=== PATIENT | female | born 1980 | race Caucasian/White ===

== ENCOUNTER 2019-11-16 22:42 | Emergency (ER) | payer OTHER, SELFPAY ==
[2019-11-16] VITALS (9 sets, daily range): BP systolic 127–140; BP diastolic 75–85; PULSE 70–83; RESP 12–18; TEMP 36.7; O2SAT 99–100
--- NOTE | ~2019-11-16 | CT_ITS ---
EXAMINATION: CT abdomen pelvis wo con DATE: 11/17/2019 01:03 INDICATION: Right flank and lower quadrant pain TECHNIQUE: Computed tomography (CT) of the abdomen and pelvis was performed without intravenous contr ast. The dose-length product (DLP) was 621.14 mGy-cm. Automated exposure control and iterative recons truction technique were employed. COMPARISON: 04/08/2018 FINDINGS: Minimal dependent atelectasis is present in the lung bases. The heart size is normal. The g allbladder is surgically absent. The liver, spleen, pancreas, and adrenal glands are normal. There is a 3 mm nonobstructing stone of the left kidney lower pole. There are punctate nonobstructing right k idney stones. There is no hydronephrosis or hydroureter. No pathologically enlarged abdominal or pelv ic lymph nodes are identified. There is no free intraperitoneal gas or evidence of bowel obstruction. The appendix is normal. There is a fat-containing umbilical hernia. IMPRESSION: 1. No CT correlate for the patient's symptoms. 2. 3 mm nonobstructing left kidney stone. Reviewed, dictated and finalized at location A. CULTURAL SCIENCES PROFESSOR
--- NOTE | ~2019-11-16 | XR_ITS ---
EXAMINATION: XR chest 2V 11/16/2019 23:24 INDICATION: Cough with chest tightness PROCEDURE: 2 view chest COMPARISON: Comparison to multiple prior studies sequentially, with oldest reviewed study dated 03/12. FINDINGS: The lungs are clear. The cardiomediastinal silhouette is within normal limits. There are no pleural effusions. There is no pneumothorax suspected. There are cholecystectomy clips. IMPRESSION: 1: NO ACUTE CARDIOPULMONARY DISEASE. Reviewed, dictated and finalized at location A. FIC MONITOR SPECIALIST
--- NOTE | 2019-11-16 22:52 | ED.ARRPALP ---
HPI - Arrhythmia/Palpitations General Chief Complaint: Arrhythmia/Palpitations Stated Complaint: dizzy, chest discomfort. Time Seen by Provider: 11/16/19 22:51 Source: patient and RN notes reviewed Mode of arrival: other Limitations: no limitations History of Present Illness HPI narrative: Pt is a 39 y/o female who presents to the ED with c/o hear skipping beats that began earlier this afternoon while watching TV with her daughter. Pt has a family hx of long QT syndrome. Pt has a hx of bronchitis. Pt notes that she dx with bronchitis with borderline pneumonia yesterday and and was prescribed a steroid and Cefprozil 250 mg. Her PCP did not do an x-ray but the pt states her PCP recommends she get an x-ray if her sx persisted. She notes her PCP said her lungs sounded very coarse when examined yesterday. Pt notes that whenever she had bronchitis previously, she was given a different abx. Pt believes her sx are caused by the abx. She notes that she did not take the steroid until today. Pt also reports BLE tingling, BUE tingling, chest pressure pain, weakness, RLQ ABD pain, dizziness, near syncopal episode, and nausea, but denies a fever and vomiting. Pt's global safety officer is Dr. Haynes. complaint: skipped beats Onset (ago): hour(s) Duration: constant Context: occurred during rest Arrhythmia history: other (long QT wave syndrome) Associated symptoms: chest pain (pressure), near-syncope, nausea and other (reports BLE tingling, BUE tingling, weakness, RLQ ABD pain, dizziness) Related Data Home Medications Medication Instructions Recorded Confirmed bupropion HCl 150 mg 24 hr tablet, 150 mg PO QAM 09/28/19 09/28/19 extended release levothyroxine 200 mcg tablet 200 mcg PO DAILY 09/28/19 09/28/19 levothyroxine 25 mcg tablet 25 mcg PO DAILY 09/28/19 09/28/19 Allergies Allergy/AdvReac Type Severity Reaction Status Date / Time metoclopramide Allergy Severe DYSRHYTHMIA Verified 11/15/19 11:04 S ondansetron Allergy Severe DYSRHYTHMIA Verified 11/15/19 11:04 S PROLONGED QT DRUGS Allergy Severe DYSRHYTHMIA Uncoded 11/15/19 11:04 S Review of Systems Review of Systems: All systems reviewed & are unremarkable except as noted in HPI and below Constitutional: Constitutional: Denies fever(s) Cardiovascular: Cardiovascular: Reports chest pain (pressure) and Reports other (heartbeat skipping beats) Gastrointestinal: Gastrointestinal: Reports abdominal pain (RLQ), Reports nausea and Denies vomiting Neurologic: Reports dizziness, Reports syncope (near), Reports tingling (in her BLE and BUE) and Reports weakness PMFSH Past Medical History Medical History (Updated 11/17/19 @ 01:10 by Ed Regalado MD) Anxiety Bronchitis Chronic rhinitis Endometriosis Headache Hyperthyroidism Hypothyroidism Iron deficiency anemia Melanoma left wrist Meningitis Mitral valve prolapse Moderate episode of recurrent major depressive disorder Ovarian cyst Ulcer Uterine fibroid Surgical History Surgical History (Updated 11/16/19 @ 23:11 by Mandie Stern) H/O laparoscopy H/O removal of cyst History of right oophorectomy History of surgical removal of skin lesion Hx of section Hx of cholecystectomy Lumbar puncture headache Family History Family History (Updated 11/17/19 @ 00:51 by Mandie Stern) Other Congenital long QT syndrome Diabetes mellitus Family history of coronary artery disease Hypertension Lupus Social History Social History Smoking status: Never smoker Second hand tobacco smoke exposure: No Alcohol intake: current Exam Const: General: healthy appearing, no acute distress and well developed Nutritional Appearance: well nourished Orientation/consciousness: patient oriented x3 (alert) and Other orientation findings (Alert) Limitations: no limitations HENMT: Head: normocephalic and atraumatic Ears: external ears normal General nos
--- NOTE | 2019-11-16 22:55 | ECG_ITS ---
Measurements Intervals [place] Rate: 78 P: 61 AR: 169 QRS: 91 QRSD: 97 T: 32 QT: 384 QTc: 439 Interpretive Statements SINUS RHYTHM VENTRICULAR PREMATURE COMPLEX POSSIBLE LEFT ATRIAL ENLARGEMENT BORDERLINE T WAVE ABNORMALITY- ANTERIOR LEADS BORDERLINE ECG Electronically Signed On 11-17-2019 7:10:11 ELECTRONIC ASSEMBLER GROUP LEADER by Angel Cortés D.O.
[2019-11-16 23:20] LABS: Basophils Percent Auto 0.3 % (0.2-1.2); Hematocrit 37.3 % (37.0-47.0); Hemoglobin 12.1 g/dL (12.0-15.0); Immature Granulocyte Absolute 0.02 K/mm3 (0.00-0.031); Immature Granulocyte Percent A 0.2 % (0-0.5); Lymphocytes Percent Auto 6.7 % (18.3-44.2); Mean Corpuscular HGB Conc 32.4 g/dl (32-36); Mean Corpuscular Hemoglobin 29.4 pg (26-34); Mean Corpuscular Volume 90.5 fl (80-100); Mean Platelet Volume 9.4 fl (7.4-10.4); Monocytes Absolute Auto 0.1 K/mm3 (0.1-0.6); Monocytes Percent Auto 0.9 % (2.6-8.5); Neutrophils Absolute Auto 8.3 K/mm3 (1.3-6.7); Neutrophils Percent Auto 91.9 % (45.5-73.1); Platelet Count Result 221 k/mm3 (150-375); Red Blood Count 4.12 M/mm3 (4.2-5.4); Red Cell Distribution Width 12.6 % (11.5-14.5)
[2019-11-16 23:28] LABS: Alanine Aminotransferase 17 U/L (4-35); Albumin Level 4.8 g/dL (3.5-5.1); Alkaline Phosphatase 78 U/L (38-126); Aspartate Amino Transferase 37 U/L (14-36); Bilirubin,Total 0.3 mg/dL (0.2-1.3); Blood Urea Nitrogen 12 mg/dL (7-17); Calcium 9.5 mg/dL (8.4-10.2); Carbon Dioxide 23 mmol/L (22-30); Chloride 102 mmol/L (98-107); Estimated CRCL calculation 112 ml/min; Estimated Glomerular Filt Rate > 60; Glucose 218 mg/dL (65-105); Magnesium 1.9 mg/dL (1.6-2.3); Sodium 136 mmol/L (137-145)
[2019-11-16 23:40] LABS: Troponin I < 0.012 ng/mL (0.000-0.034)
[2019-11-16 23:51] LABS: Add Urine Microscopic? YES; Appearance Urine Clear (Clear); Bacteria Urine 2+ /hpf; Bilirubin Urine Negative (Negative); Blood Urine 1+ (Negative); Color Urine Straw (Yellow); Glucose Urine UA 3+ mg/dL (Negative); Ketones Urine Negative (Negative); Leukocyte Esterase Ur Negative LEU/UL (Negative); Mucus Urine Rare /lpf; Nitrate Urine Negative (Negative); Protein Urine Negative (Negative); RBC Urine 0-2 /hpf (0-2); Specific Grav Ur 1.009 (1.001-1.035); Squamous Epithelial Cell Urine Few /hpf (Few); Urobilinogen Urine Negative mg/dL (<2.0); WBC Urine 0-3 /hpf
[2019-11-17] VITALS: PULSE 78; RESP 14; O2SAT 100
[2019-11-17 00:01] VITALS: BP 117/75; PULSE 73; RESP 13; O2SAT 100
[2019-11-17 00:20] VITALS: PULSE 72; RESP 13; O2SAT 100
[2019-11-17 00:30] VITALS: PULSE 70; RESP 14; O2SAT 100
--- NOTE | 2019-11-17 00:54 | PC.NURSE ---
Patient taken to CT.
[2019-11-17 01:19] LABS: Free T4 Free Thyroxine 0.54 ng/mL (0.78-2.19)
[2019-11-17 02:13] VITALS: BP 117/73; PULSE 71; RESP 15; O2SAT 99
== END 2019-11-17 02:00 | disposition home or self-care (01) ==
PROVIDERS: Emergency Provider Emergency Medicine; PCP Family Medicine
DX: R00.2 Palpitations (principal); E03.9 Hypothyroidism, unspecified; D50.9 Iron deficiency anemia, unspecified; Z85.820 Personal history of malignant melanoma of skin; I34.1 Nonrheumatic mitral (valve) prolapse; F33.8 Other recurrent depressive disorders; F41.9 Anxiety disorder, unspecified; I49.3 Ventricular premature depolarization; R94.31 Abnormal electrocardiogram [ECG] [EKG]
CPT/HCPCS: 36415; 71046; 74176; 80053; 81001; 83735; 84439; 84443; 84484; 85025; 93005; 99284

== ENCOUNTER 2020-01-05 08:10 | Emergency (ER) | payer OTHER, SELFPAY ==
--- NOTE | ~2020-01-05 | CT_ITS ---
EXAMINATION: CT abdomen pelvis w con EXAM DATE: 01/05/2020 09:38 INDICATION: Abdominal pain, right-sided. Diarrhea. TECHNIQUE: Spiral CT of the abdomen and pelvis was performed following intravenous injection of 100 m L Omnipaque 350. Axial, coronal and sagittal images were reviewed. The dose-length product (DLP) fo r this examination was 611.47 mGy-cm. The exposure was tailored according to patient size (auto mA e xposure control), and iterative reconstruction (ASIR) was used as additional dose reduction technique . Comparison is made to prior examination from 11/17/2019. FINDINGS: The liver, spleen, adrenal glands and pancreas are unremarkable. There are cholecystectomy clips. Portal and splenic veins are patent. Kidneys enhance symmetrically. There is no hydronephr osis. There is a 2 mm left inferior calyceal stone. Left ovarian physiological follicle measuring 2 c m. The uterus is unremarkable. The bladder is unremarkable. There is no retroperitoneal or pelvic lymphadenopathy. Small umbilical fat-containing hernia. The appendix is normal. There is mild mid ileal wall edema, consistent with enteritis. Inflammatory bowel disease less likely. There is expected amount of colonic stool. No free intraperitoneal gas. The heart is normal in size. There are no pericardial or pleural effusions. The lung bases are u nremarkable. There are no osteoblastic or osteolytic lesions identified. IMPRESSION: 1. Mild mid ileal edema, probably enteritis. Inflammatory bowel disease not excludable. 2. Punctate left nephrolithiasis. Reviewed, dictated and finalized at location A. IMPRESSION: 1. Mild mid ileal edema, probably enteritis. Inflammatory bowel disease not ex cludable. 2. Punctate left nephrolithiasis.
[2020-01-05 08:16] VITALS: BP 127/67; PULSE 81; RESP 15; TEMP 36.8; O2SAT 100
--- NOTE | 2020-01-05 08:28 | ED.GENADULT ---
HPI - General Adult General Chief complaint: Abdominal Pain Stated complaint: right side abd pain Time Seen by Provider: 01/05/20 08:17 Source: patient Mode of arrival: ambulatory Limitations: no limitations History of Present Illness HPI narrative: Patient has had right lower quadrant pain since Friday. She states that the pain started on the right upper and her flank and has traveled now to towards her groin, but she does complain of diffuse abdominal pain. She said multiple episodes of diarrhea since Friday, the stool is normal in color. Her appetite is decreased and she has difficulty walking due to the pain. She denies any fever. No history of kidney stones in herself but there is a family history as there is a family history of diverticular disease. Onset (ago): day(s) Location: abdomen (right side) Radiation: flank Quality: stabbing Pain Consistency: constant Relieving factors: none Associated symptoms: fever/chills (no fever) Treatments prior to arrival: NSAID Related Data Home Medications Medication Instructions Recorded Confirmed bupropion HCl 150 mg 24 hr tablet, 150 mg PO QAM 09/28/19 09/28/19 extended release levothyroxine 200 mcg tablet 200 mcg PO DAILY 09/28/19 09/28/19 Allergies Allergy/AdvReac Type Severity Reaction Status Date / Time metoclopramide Allergy Severe DYSRHYTHMIA Verified 01/05/20 08:21 S ondansetron Allergy Severe DYSRHYTHMIA Verified 01/05/20 08:21 S PROLONGED QT DRUGS Allergy Severe DYSRHYTHMIA Uncoded 01/05/20 08:21 S Review of Systems Review of Systems: All systems reviewed & are unremarkable except as noted in HPI and below PMFSH Past Medical History Medical History Anxiety Bronchitis Chronic rhinitis Endometriosis Headache Hyperthyroidism Hypothyroidism Iron deficiency anemia Melanoma left wrist Meningitis Mitral valve prolapse Moderate episode of recurrent major depressive disorder Ovarian cyst Ulcer Uterine fibroid Surgical History Surgical History H/O laparoscopy H/O removal of cyst History of right oophorectomy History of surgical removal of skin lesion Hx of section Hx of cholecystectomy Lumbar puncture headache Family History Family History Other Congenital long QT syndrome Diabetes mellitus Family history of coronary artery disease Hypertension Lupus Social History Social History (Updated 01/05/20 @ 09:03 by Ileana Rizo PA-C) Smoking status: Never smoker Second hand tobacco smoke exposure: No Alcohol intake: current Substance use: never Living arrangements: with family Gender identity (if verbalized by the patient): Female Exam Const: General: no acute distress and alert Orientation/consciousness: patient oriented x3 HENMT: Head: normal to inspection Eyes: Conjunctivae: conjunctivae normal Pupils: Equal, round and reactive pupils present Neck: Neck: no lymphadenopathy Resp: Effort & Inspection: normal respiratory effort Auscultation: clear to auscultation bilaterally Cardio: Rate: regular rate Rhythm: regular rhythm GI: GI Palp: Yes Soft to palpation and Yes Tenderness to palpation present (GI) (through out.) Auscultation: Hyperactive bowel sounds present : General: Yes CVA tenderness on the right Skin: General skin exam: normal color Rashes: no rashes Neuro: General: patient oriented x3 and moves all extremities Extrem: General: normal to inspection Psych: Mental Status: mental status grossly normal Course Course Emergency Course: CT results reviewed with patient and . Will treat as gastroenteritis. Pt is limited for antiemetics due to family history of prolonged Q-T syndrome. Recommend steve as a natural antiemetic, mylanta for gastic pain. If not resolved by the end of the week recommen
[2020-01-05 09:04] LABS: Basophils Absolute Auto 0.1 K/mm3 (0.0-0.1); Eosinophils Absolute Auto 0.1 K/mm3 (0-0.3); Eosinophils Percent Auto 2.9 % (0-4.4); Hematocrit 36.7 % (37.0-47.0); Hemoglobin 11.7 g/dL (12.0-15.0); Immature Granulocyte Absolute 0.02 K/mm3 (0.00-0.031); Immature Granulocyte Percent A 0.4 % (0-0.5); Lymphocytes Absolute Auto 1.18 K/mm3 (0.9-3.2); Mean Corpuscular HGB Conc 31.9 g/dl (32-36); Mean Corpuscular Hemoglobin 28.8 pg (26-34); Mean Corpuscular Volume 90.4 fl (80-100); Mean Platelet Volume 9.4 fl (7.4-10.4); Monocytes Absolute Auto 0.5 K/mm3 (0.1-0.6); Monocytes Percent Auto 10.4 % (2.6-8.5); Neutrophils Percent Auto 61.3 % (45.5-73.1); Platelet Count Result 232 k/mm3 (150-375); Red Blood Count 4.06 M/mm3 (4.2-5.4); Red Cell Distribution Width 13.1 % (11.5-14.5); White Blood Count 4.9 K/mm3 (4.5-10.0)
[2020-01-05 09:06] LABS: Add Urine Microscopic? NO; Appearance Urine Clear (Clear); Bilirubin Urine Negative (Negative); Blood Urine Negative (Negative); Color Urine Straw (Yellow); Glucose Urine UA Negative (Negative); Ketones Urine Negative (Negative); Leukocyte Esterase Ur Negative LEU/UL (Negative); Nitrate Urine Negative (Negative); Protein Urine Negative (Negative); Specific Grav Ur 1.012 (1.001-1.035); Urobilinogen Urine Negative mg/dL (<2.0)
[2020-01-05 09:20] LABS: Alanine Aminotransferase 22 U/L (4-35); Albumin Level 4.3 g/dL (3.5-5.1); Alkaline Phosphatase 69 U/L (38-126); Aspartate Amino Transferase 42 U/L (14-36); Bilirubin,Total 0.6 mg/dL (0.2-1.3); Blood Urea Nitrogen 9 mg/dL (7-17); Calcium 8.8 mg/dL (8.4-10.2); Carbon Dioxide 28 mmol/L (22-30); Chloride 102 mmol/L (98-107); Estimated CRCL calculation 112 ml/min; Estimated Glomerular Filt Rate > 60; Glucose 94 mg/dL (65-105); Lipase 86 U/L (23-300); Potassium 3.4 mmol/L (3.4-5.0); Sodium 138 mmol/L (137-145)
[2020-01-05 09:46] VITALS: BP 144/74; PULSE 85; RESP 14; O2SAT 100
[2020-01-05] MEDS: KETOROLAC 30 MG/ML VIAL (*BKC) IV PUSH (10:04)
[2020-01-05 10:56] VITALS: BP 104/75; PULSE 75; RESP 15; O2SAT 99
== END 2020-01-05 11:00 | disposition home or self-care (01) ==
PROVIDERS: Physician Assistant; Emergency Provider Emergency Medicine; PCP Family Medicine
DX: K52.9 Noninfective gastroenteritis and colitis, unspecified (principal); B34.9 Viral infection, unspecified; F41.9 Anxiety disorder, unspecified
CPT/HCPCS: 36415; 74177; 80053; 81003; 81025; 83690; 85025; 96374; 99284; J1885; Q9967

== ENCOUNTER → 2020-07-04 11:02 | Outpatient (CLI) | payer OTHER, SELFPAY ==
--- NOTE | ~2020-07-04 | XR_ITS ---
XR chest 2V 07/04/2020 11:30 Indication: Pleurodynia Procedure: 2 view chest Comparison: Comparison to multiple prior studies sequentially, with oldest reviewed study dated 07/10. Findings: Heart size normal. Left basilar infiltrates are new. Right lung clear. No pleural effusion or pneumothorax. No edema. No acute osseous abnormality. Impression: 1: Left basilar infiltrates may represent atelectasis or less likely developing pneumonia. Reviewed, dictated and finalized at location B. Impression: 1: Left basilar infiltrates may represent atelectasis or less likely developing pneumonia.
--- NOTE | ~2020-07-04 | XR_ITS ---
EXAMINATION: XR_CERV2-3V_CR DATE: 07/04/2020 11:30 INDICATION: Neck pain. TECHNIQUE: 5 views of cervical spine were obtained. COMPARISON: None. FINDINGS: There is 9 degrees dextrocurvature of cervical spine. Vertebral body heights and interverte bral disc heights are normal. The facet joints are unremarkable. No central canal stenosis or prevert ebral soft tissue swelling. IMPRESSION: 1. Dextrocurvature of cervical spine. Reviewed, dictated and finalized at location A.
== END ==
PROVIDERS: PCP Family Medicine; Visit Provider Physician Assistant
DX: R07.81 Pleurodynia (principal); M54.2 Cervicalgia; R91.8 Other nonspecific abnormal finding of lung field
CPT/HCPCS: 71046; 72040

== ENCOUNTER → 2020-07-27 08:59 | Outpatient (CLI) | payer OTHER, SELFPAY ==
--- NOTE | ~2020-07-27 | XR_ITS ---
EXAMINATION: XR chest 2V EXAM DATE: 07/27/2020 09:10 INDICATION: Acute lower respiratory infection. TECHNIQUE: Frontal and lateral projections of the chest obtained and reviewed. Comparison is made to prior examination from 07/04/2020. FINDINGS: The lungs are clear. There are no pleural effusions. The cardiomediastinal silhouette is within normal limits. There is no pneumothorax suspected. The bones and soft tissues are unremarkab le. IMPRESSION: No acute cardiopulmonary findings. Reviewed, dictated and finalized at location B.
== END ==
PROVIDERS: PCP Family Medicine; Visit Provider Physician Assistant
DX: J22 Unspecified acute lower respiratory infection (principal)
CPT/HCPCS: 71046

== ENCOUNTER → 2020-10-10 08:58 | Outpatient (CLI) | payer OTHER, SELFPAY ==
--- NOTE | ~2020-10-10 | XR_ITS ---
EXAMINATION: XR chest 2V DATE: 10/10/2020 09:16 INDICATION: Shortness of breath, history of COVID 19 TECHNIQUE: PA and lateral views of the chest are obtained. COMPARISON: 07/27/2020 FINDINGS: The lungs are free of acute opacities. There is no pleural effusion or pneumothorax. The ca rdiomediastinal silhouette is normal. The visualized bones and soft tissues are unremarkable. IMPRESSION: 1. No acute cardiopulmonary abnormality. Reviewed, dictated and finalized at location A. LE LOUNGE DRIVER OR OPERATOR
== END ==
PROVIDERS: PCP Family Medicine; Visit Provider Physician Assistant
DX: R06.02 Shortness of breath (principal)
CPT/HCPCS: 71046

== ENCOUNTER 2020-12-20 15:52 | Emergency (ER) | payer OTHER, SELFPAY ==
--- NOTE | ~2020-12-20 | XR_ITS ---
EXAMINATION: XR foot LT min 3V EXAM DATE: 12/20/2020 16:06 INDICATION: Kamlesh dropped onto left foot. Pain left 3-5th toes. Initial encounter. TECHNIQUE: Left foot dorsoplantar, lateral and oblique projections obtained and reviewed. There is n o prior study for comparison. FINDINGS: Left metatarsal bones unremarkable. There are no acute fractures or dislocations identifi ed. There is no subcutaneous gas. The soft tissue is unremarkable. There are no radiopaque foreig n bodies. IMPRESSION: 1. XR foot LT min 3V exam without acute osseous findings. Reviewed, dictated and finalized at location A. CHIEF
--- NOTE | 2020-12-20 15:57 | ED.GENADULT ---
HPI - General Adult General Chief complaint: Extremity Injury, Lower Stated complaint: INJURED L FOOT Time Seen by Provider: 12/20/20 15:57 Source: patient Mode of arrival: ambulatory Limitations: no limitations History of Present Illness HPI narrative: 40-year-old female patient presents to the [facility] with complaints of left foot pain. Patient states that she was at [employer] today with her and that her accidentally dropped some paddy onto her left foot. Patient states that she has been at home elevating it, icing it did take some ibuprofen for the pain. Patient states she mostly has pain to the third fourth and fifth toe on the left foot. Patient states that she is also had some pain across the arch, sole in the midfoot with walking on it. Related Data Home Medications Medication Instructions Recorded Confirmed levothyroxine 200 mcg tablet 200 mcg PO DAILY 10/10/20 Allergies Allergy/AdvReac Type Severity Reaction Status Date / Time metoclopramide Allergy Severe DYSRHYTHMIA Verified 10/10/20 08:36 S ondansetron Allergy Severe DYSRHYTHMIA Verified 10/10/20 08:36 S PROLONGED QT DRUGS Allergy Severe DYSRHYTHMIA Uncoded 01/05/20 08:21 S Review of Systems Review of Systems: Narrative: CONSTITUTIONAL: Denies fever, chills, or sweats. EYES: Denies visual changes, redness, or discharge. ENT: Denies rhinorrhea, congestion, sore throat, or otalgia. CARDIOVASCULAR: Denies chest pain, palpitations, or edema. RESPIRATORY: Denies cough or dyspnea. GASTROINTESTINAL: Denies abdominal pain, nausea, vomiting, or diarrhea. GENITOURINARY: Denies dysuria or hematuria. SKIN: Denies rash or itching. MUSCULOSKELETAL: Denies back pain, joint pain, or myalgia. Positive left foot pain NEUROLOGIC: Denies headache, numbness, or weakness. PSYCHIATRIC: Denies anxiety or depression. [facility] Past Medical History Medical History (Updated 12/20/20 @ 16:12 by JESSICA Mendiola) Anxiety Bronchitis Chronic rhinitis Endometriosis Headache Hyperthyroidism Hypothyroidism Iron deficiency anemia Melanoma left wrist Meningitis Mitral valve prolapse Moderate episode of recurrent major depressive disorder Ovarian cyst Ulcer Uterine fibroid Surgical History Surgical History H/O laparoscopy H/O removal of cyst History of right oophorectomy History of surgical removal of skin lesion Hx of section Hx of cholecystectomy Lumbar puncture headache Family History Family History Other Congenital long QT syndrome Diabetes mellitus Family history of coronary artery disease Hypertension Lupus Social History Social History Smoking status: Never smoker Second hand tobacco smoke exposure: No Alcohol intake: current Substance use: never Gender identity (if verbalized by the patient): Female Comments At the time of my signature I agree with nursing past medical history, surgical, social, and family history. There is no relevant family history pertinent to the presenting complaint. Exam Narrative: Exam Narrative: GENERAL: Well-appearing, well-nourished, and in no acute distress. HEAD: Normocephalic, atraumatic. EYES: PERRLA and EOMI. ENT: Nares clear, no rhinorrhea or epistaxis. Mucous membranes moist. NECK: Supple. No lymphadenopathy CHEST: Clear to auscultation. No respiratory distress. HEART: Regular rate and rhythm. No murmur heard. Normal peripheral pulses. ABDOMEN: Soft, nontender, nondistended, normal active bowel sounds. EXTREMITIES: Patient able to bear weight and ambulate but has increased pain to the left foot. No surface trauma, ecchymosis, erythema, lesions, ulcers or break in skin integrity. The L foot is without obvious asymmetry or deformity when compared to the R foot. No bony step-off, tender to palpati
[2020-12-20 15:58] VITALS: BP 131/74; PULSE 71; RESP 16; TEMP 36.6; O2SAT 100
== END 2020-12-20 16:19 | disposition home or self-care (01) ==
PROVIDERS: Emergency Provider Nurse Practitioner Family; PCP Family Medicine
DX: S93.602A Unspecified sprain of left foot, initial encounter (principal); W20.8XXA Other cause of strike by thrown, projected or falling object, initial encounter; N80.9 Endometriosis, unspecified; E03.9 Hypothyroidism, unspecified; I34.1 Nonrheumatic mitral (valve) prolapse; F41.9 Anxiety disorder, unspecified
CPT/HCPCS: 73630; 99213; G0463

== ENCOUNTER 2021-01-11 11:56 | Outpatient (CLI) | payer OTHER, SELFPAY ==
--- NOTE | 2021-01-11 12:18 | ECG_ITS ---
Measurements Intervals [place] Rate: 72 P: 64 CO: 172 QRS: 72 QRSD: 94 T: 44 QT: 394 QTc: 431 Interpretive Statements SINUS RHYTHM POSSIBLE LEFT ATRIAL ENLARGEMENT BORDERLINE T WAVE ABNORMALITY- ANTERIOR LEADS BORDERLINE ECG Electronically Signed On 01-11-2021 12:35:06 CDT by Angel Cortés D.O.
[2021-01-11 12:42] LABS: D Dimer 0.27 ug/mL (<0.48)
== END 2021-01-11 11:57 | disposition home or self-care (01) ==
PROVIDERS: PCP Family Medicine; Visit Provider Physician Assistant
DX: R06.02 Shortness of breath (principal); R07.9 Chest pain, unspecified; R94.31 Abnormal electrocardiogram [ECG] [EKG]
CPT/HCPCS: 36415; 85380; 93005

== ENCOUNTER 2021-01-16 08:52 | Outpatient (CLI) | payer OTHER, SELFPAY ==
[2021-01-16 09:07] LABS: Hematocrit 39.6 % (37.0-47.0); Hemoglobin 12.9 g/dL (12.0-15.0); Mean Corpuscular HGB Conc 32.6 g/dl (32-36); Mean Corpuscular Hemoglobin 29.7 pg (26-34); Mean Corpuscular Volume 91.2 fl (80-100); Mean Platelet Volume 9.3 fl (7.4-10.4); Platelet Count Result 210 k/mm3 (150-375); Red Blood Count 4.34 M/mm3 (4.2-5.4); Red Cell Distribution Width 12.4 % (11.5-14.5); White Blood Count 6.4 K/mm3 (4.5-10.0)
[2021-01-16 09:20] LABS: Alanine Aminotransferase 28 U/L (4-35); Albumin Level 4.4 g/dL (3.5-5.1); Alkaline Phosphatase 75 U/L (38-126); Anion Gap 4 mmol/L (8-16); Aspartate Amino Transferase 49 U/L (14-36); Bilirubin,Total 0.4 mg/dL (0.2-1.3); Blood Urea Nitrogen 12 mg/dL (7-17); Carbon Dioxide 31 mmol/L (22-30); Chloride 104 mmol/L (98-107); Cholesterol 192 mg/dL (0-200); Estimated Glomerular Filt Rate > 60; Glucose 96 mg/dL (65-105); HDL Direct 56 mg/dL; Magnesium 1.9 mg/dL (1.6-2.3); Potassium 4.3 mmol/L (3.4-5.0); Sodium 139 mmol/L (137-145); Triglycerides 110 mg/dL (<150)
[2021-01-16 09:30] LABS: LDL Cholesterol Direct 99 mg/dL
[2021-01-16 09:37] LABS: Iron 98 ug/dL (37-170)
[2021-01-16 09:46] LABS: Percent Iron Saturation 27 % (20-50)
== END 2021-01-16 08:53 | disposition home or self-care (01) ==
PROVIDERS: PCP Family Medicine; Visit Provider Family Medicine
DX: R07.89 Other chest pain (principal); R00.2 Palpitations; D50.9 Iron deficiency anemia, unspecified; E03.9 Hypothyroidism, unspecified; E78.2 Mixed hyperlipidemia
CPT/HCPCS: 36415; 80053; 80061; 82728; 83540; 83550; 83735; 84443; 85027

== ENCOUNTER → 2021-05-08 06:37 | Outpatient (CLI) | payer OTHER, SELFPAY ==
[2021-05-08 17:52] LABS: SARS-CoV-2 RNA PCR Negative
== END ==
PROVIDERS: PCP Family Medicine; Visit Provider Physician Assistant
DX: R05 Cough (principal); Z20.822 Contact with and (suspected) exposure to COVID-19
CPT/HCPCS: C9803; U0003; U0005

== ENCOUNTER 2021-10-03 13:48 | Outpatient (CLI) | payer OTHER, SELFPAY ==
--- NOTE | ~2021-10-03 | US_ITS ---
US thyroid INDICATION: Thyroid nodule.. Previous radiation therapy to the thyroid gland. TECHNIQUE: Real-time sonographic images of the thyroid gland were obtained. COMPARISON: 03/11/2017 FINDINGS: The right thyroid lobe measures 2.3 x 1 x 0.4 cm. The left thyroid lobe measures 1.6 x 0.9 x 0.6 cm. There is normal echotexture and echogenicity throughout the thyroid gland. No discrete nod ules identified. Normal vascular flow is present. IMPRESSION: 1. Atrophic thyroid gland without discrete mass. Reviewed, dictated and finalized at location A. IGERATING ENGINEER
== END 2021-10-03 13:49 | disposition home or self-care (01) ==
LOC: ANHIMG 13:55
PROVIDERS: PCP Family Medicine; Visit Provider Obstetrics & Gynecology
DX: E04.1 Nontoxic single thyroid nodule (principal)
CPT/HCPCS: 76536

== ENCOUNTER 2022-01-29 12:06 | Outpatient (CLI) | payer OTHER, SELFPAY ==
--- NOTE | 2022-01-29 12:16 | ECG_ITS ---
Measurements Intervals [place] Rate: 53 P: 40 [place]: 161 QRS: 71 QRSD: 98 T: 34 QT: 427 QTc: 402 Interpretive Statements SINUS BRADYCARDIA NONSPECIFIC T-WAVE ABNORMALITY ABNORMAL ECG COMPARED TO ECG 01/11/2021 12:23:16 SINUS BRADYCARDIA NOW PRESENT Electronically Signed On 01-29-2022 18:05:41 CDT by Hoang Bowie M.D.
== END 2022-01-29 12:07 | disposition home or self-care (01) ==
LOC: ANHCARD 12:08
PROVIDERS: PCP Family Medicine; Visit Provider Physician Assistant Medical
DX: E03.9 Hypothyroidism, unspecified (principal); I45.81 Long QT syndrome; R00.1 Bradycardia, unspecified
CPT/HCPCS: 93005

== ENCOUNTER 2022-05-13 10:56 | Emergency (ER) | payer OTHER, SELFPAY ==
--- NOTE | 2022-05-13 11:01 | ED.URI ---
HPI - URI/Sore Throat General Chief Complaint: Upper Respiratory Infection Stated Complaint: Sore Throat,Cough Time Seen by Provider: 05/13/22 11:45 Source: patient and RN notes reviewed Mode of arrival: ambulatory Limitations: no limitations History of Present Illness HPI Narrative: 41-year-old female presents with concern for sore throat that started . Reports the sore throat was intermittent over the weekend however has worsened over the last day. She reports she is now having ear pain. She reports occasional cough and chest congestion, rhinorrhea. She reports she is taken 3 negative COVID tests. 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 Reports she has been taking Tylenol and ibuprofen MD elicited complaint: sore throat Related Data Home Medications Medication Instructions Recorded Confirmed levothyroxine 200 mcg tablet 200 mcg PO DAILY 10/10/20 05/13/22 (Synthroid) metoprolol succinate 25 mg 12.5 mg PO DAILY 01/29/22 05/13/22 tablet,extended release 24 hr Allergies Allergy/AdvReac Type Severity Reaction Status Date / Time metoclopramide Allergy Severe DYSRHYTHMIA Verified 05/13/22 11:26 S ondansetron Allergy Severe DYSRHYTHMIA Verified 05/13/22 11:26 S PROLONGED QT DRUGS Allergy Severe DYSRHYTHMIA Uncoded 05/13/22 11:26 S Review of Systems Review of Systems: CONSTITUTIONAL: Denies malaise, chills, sweats, or fever. EYES: Denies visual changes, redness, or discharge. ENT: Reports rhinorrhea, congestion, otalgia and sore throat. CARDIOVASCULAR: Denies chest pain, palpitations, or edema. RESPIRATORY: Reports cough. Denies dyspnea. GASTROINTESTINAL: Denies abdominal pain, nausea, vomiting, diarrhea SKIN: Denies rash or itching. MUSCULOSKELETAL: Denies myalgia. NEUROLOGIC: Denies headache. All systems reviewed & are unremarkable except as noted in HPI and below PMFSH Past Medical History Medical History (Updated 05/13/22 @ 11:45 by Jenifer Mesa NP) Anxiety Bronchitis Chronic rhinitis Dysphagia Endometriosis Headache Hyperthyroidism Hypothyroidism Iron deficiency anemia Melanoma left wrist Meningitis Mitral valve prolapse Moderate episode of recurrent major depressive disorder Ovarian cyst Ulcer Uterine fibroid Surgical History Surgical History H/O laparoscopy H/O removal of cyst History of right oophorectomy History of surgical removal of skin lesion Hx of section Hx of cholecystectomy Lumbar puncture headache Family History Family History (Reviewed 01/29/22 @ 11:07 by Simran Joy [facility]) Other Congenital long QT syndrome Diabetes mellitus Family history of coronary artery disease Hypertension Lupus Social History Social History (Reviewed 01/29/22 @ 11:07 by Simran Joy [facility]) Smoking status: Never smoker Second hand tobacco smoke exposure: No Alcohol intake: never Substance use: never Gender identity (if verbalized by the patient): Female Comments At time of signature, agree with nursing past medical, surgical, social and family history. There is no relevant family history pertinent to the presenting complaint Exam Narrative: GENERAL: Well-appearing, well-nourished, and in no acute distress. HEAD: Normocephalic EYES: PERRLA, conjunctivae clear ENT: Nares clear, clear discharge. Mucous membranes moist. TM pearly harris with sharp light reflex bilaterally; no tragal tenderness. Oropharynx erythematous without lesions. Tonsils cobblestoned without exudate, no drooling, no hoarseness, no trismus, uvula midline. NECK: Supple. No lymphadenopathy CHEST: Clear to auscultation, breath sounds equal. No wheezing, rhonchi, rales, or stridor. No respiratory distress, speaks in full sentences. HEART: Regular rate and rhythm. No murmur heard. SKIN: Warm, dry, no rash. NEURO: Alert and oriented x3. PSYCH: Nupur
[2022-05-13 11:18] VITALS: BP 115/76; PULSE 75; RESP 18; TEMP 37.1; O2SAT 100
== END 2022-05-13 12:05 | disposition home or self-care (01) ==
PROVIDERS: Emergency Provider Nurse Practitioner; PCP Family Medicine
DX: J06.9 Acute upper respiratory infection, unspecified (principal); N80.9 Endometriosis, unspecified; E03.9 Hypothyroidism, unspecified; E05.90 Thyrotoxicosis, unspecified without thyrotoxic crisis or storm; I34.1 Nonrheumatic mitral (valve) prolapse; Z85.820 Personal history of malignant melanoma of skin; F41.9 Anxiety disorder, unspecified
CPT/HCPCS: 87081; 87880; 99213; G0463

== ENCOUNTER 2022-05-20 10:03 | Emergency (ER) | payer OTHER, SELFPAY ==
--- NOTE | ~2022-05-20 | XR_ITS ---
EXAMINATION: XR chest 2V 05/20/2022 10:44 INDICATION: Cough for 10 days PROCEDURE: 2 view chest COMPARISON: 11/16/2019 FINDINGS: The lungs are clear. The cardiomediastinal silhouette is within normal limits. There are no pleural effusions. There is no pneumothorax suspected. IMPRESSION: 1: NO ACUTE CARDIOPULMONARY DISEASE. Reviewed, dictated and finalized at location [facility].
--- NOTE | 2022-05-20 10:20 | ED.URI ---
HPI - URI/Sore Throat General Chief Complaint: Upper Respiratory Infection Stated Complaint: sorethroat,cough Time Seen by Provider: 05/20/22 10:30 Source: patient Mode of arrival: ambulatory Limitations: no limitations History of Present Illness HPI Narrative: Ms. Cano is a 41-year-old female patient presenting to the clinic today with complaints of a cough, sore throat, and chest tightness. She reports that she has been sick for 10 days. States that she has had 2 strep test and COVID test and they were all negative. She denies any fever or chills currently. Her SPO2 is currently 100% on room air. She states that she is prone to getting bronchitis and pneumonia. MD elicited complaint: sore throat and nasal congestion Related Data Home Medications Medication Instructions Recorded Confirmed levothyroxine 200 mcg tablet 200 mcg PO DAILY 10/10/20 05/20/22 (Synthroid) metoprolol succinate 25 mg 12.5 mg PO DAILY 01/29/22 05/20/22 tablet,extended release 24 hr Allergies Allergy/AdvReac Type Severity Reaction Status Date / Time metoclopramide Allergy Severe DYSRHYTHMIA Verified 05/20/22 10:36 S ondansetron Allergy Severe DYSRHYTHMIA Verified 05/20/22 10:36 S PROLONGED QT DRUGS Allergy Severe DYSRHYTHMIA Uncoded 05/20/22 10:36 S Review of Systems Review of Systems: Pertinent positives per HPI. Patient denies any fever, chills, rash, headache, visual changes, dizziness, shortness of breath, chest pain, palpitations, nausea, vomiting, diarrhea, constipation, abdominal pain, or any urinary issues. [facility] Past Medical History Medical History Anxiety Bronchitis Chronic rhinitis Dysphagia Endometriosis Headache Hyperthyroidism Hypothyroidism Iron deficiency anemia Melanoma left wrist Meningitis Mitral valve prolapse Moderate episode of recurrent major depressive disorder Ovarian cyst Ulcer Uterine fibroid Surgical History Surgical History H/O laparoscopy H/O removal of cyst History of right oophorectomy History of surgical removal of skin lesion Hx of section Hx of cholecystectomy Lumbar puncture headache Family History Family History Other Congenital long QT syndrome Diabetes mellitus Family history of coronary artery disease Hypertension Lupus Social History Social History Smoking status: Never smoker Second hand tobacco smoke exposure: No Alcohol intake: never Substance use: never Gender identity (if verbalized by the patient): Female Comments At the time of my signature, I reviewed and agree with the nursing past medical, surgical, social, and family history. There is no relevant family history pertinent to the patient complaint. Exam Narrative: General: Well-developed, well nourished, in no apparent distress Head: Normocephalic, atraumatic Eyes: Pupils equally round and reactive to light bilaterally, EOM intact, sclera and conjunctive clear, no discharge, lids normal Ears: TMs intact and clear, ear canals clear, no drainage, grossly hearing normal. Nose: Nares patent, no discharge, no inflammation, no sinus tenderness. Mouth: Oral pharynx without lesions or masses, good dentition, MMM. Oropharynx mildly red, postnasal drip Neck: Supple, trachea midline, no enlargement of anterior or posterior cervical nodes, no thyroid masses or goiter palpable. Cardio: Regular rate and rhythm, s1 and s2 normal, no murmur appreciated. Resp: Clear to auscultation bilaterally, no rhonchi, rales, wheezing or rubs Course Course Emergency Course: Portions of this record may have been created with voice recognition software. Level of Care: Express Care Visit Vital Signs Vital signs: Vital Signs Temperature 3
[2022-05-20 10:22] VITALS: BP 115/80; PULSE 76; RESP 18; TEMP 37.1; O2SAT 100
== END 2022-05-20 11:00 | disposition home or self-care (01) ==
PROVIDERS: Emergency Provider Nurse Practitioner Family; PCP Family Medicine
DX: J40 Bronchitis, not specified as acute or chronic (principal); N80.9 Endometriosis, unspecified; E05.90 Thyrotoxicosis, unspecified without thyrotoxic crisis or storm; E03.9 Hypothyroidism, unspecified; I34.1 Nonrheumatic mitral (valve) prolapse; Z85.820 Personal history of malignant melanoma of skin
CPT/HCPCS: 71046; 99213; G0463

== ENCOUNTER 2022-06-04 10:02 | Outpatient (CLI) | payer OTHER, SELFPAY ==
--- NOTE | 2022-06-04 10:07 | ECG_ITS ---
Measurements Intervals [place] Rate: 60 P: 68 [place]: 174 QRS: 73 QRSD: 90 T: 37 QT: 401 QTc: 403 Interpretive Statements SINUS RHYTHM NONSPECIFIC T-WAVE ABNORMALITY ABNORMAL ECG COMPARED TO ECG 01/29/2022 12:24:26 SINUS RHYTHM NOW PRESENT Electronically Signed On 06-04-2022 12:08:43 CDT by Hoang Bowie M.D.
== END 2022-06-04 10:03 | disposition home or self-care (01) ==
LOC: ANHCARD 10:04
PROVIDERS: PCP Family Medicine; Visit Provider Physician Assistant Medical
DX: R07.89 Other chest pain (principal); R94.31 Abnormal electrocardiogram [ECG] [EKG]
CPT/HCPCS: 93005

== ENCOUNTER 2022-07-08 10:19 | Outpatient (CLI) | payer OTHER, SELFPAY ==
--- NOTE | ~2022-07-08 | CT_ITS ---
EXAMINATION: CT abdomen pelvis w con DATE: 07/08/2022 10:42 INDICATION: Abdominal pain TECHNIQUE: Computed tomography (CT) of the abdomen and pelvis was performed with 100 CC Omnipaque 350 intravenous contrast. Automated exposure control and iterative reconstruction technique were employe d. Exam dose: 446.45 mGy-cm total exam DLP. COMPARISON: 01/05/2020 CT abdomen pelvis FINDINGS: Lung bases are clear. Normal heart size. No pericardial or pleural effusion. Status post cholecystectomy. The liver, spleen, pancreas, and adrenal glands and kidneys are unremark able. 3 mm nonenhancing lesion of the right kidney is too small to definitively characterize, most likely a small cyst. The kidneys are otherwise unremarkable. No urinary tract calculus or hydroureteronephros is. The urinary bladder, uterus and adnexal areas are unremarkable except for 1.8 cm left ovarian cor pus luteum cyst. Normal caliber of the abdominal aorta. No intraperitoneal or retroperitoneal or pelvic mass lesion or adenopathy or ascites. Normal appendix. No bowel obstruction, bowel wall thickening, pneumatosis or intraperitoneal free air . Small fat-containing umbilical hernia. No suspicious osteolytic or osteoblastic lesions. IMPRESSION: 1.8 cm left ovarian cyst Status post cholecystectomy Normal appendix Reviewed, dictated and finalized at [facility]. Reviewed, dictated and finalized at location B.
== END 2022-07-08 10:20 | disposition home or self-care (01) ==
PROVIDERS: PCP Family Medicine; Visit Provider Physician Assistant Medical
DX: R10.9 Unspecified abdominal pain (principal); Z90.49 Acquired absence of other specified parts of digestive tract; N83.202 Unspecified ovarian cyst, left side
CPT/HCPCS: 74177; Q9967

== ENCOUNTER 2022-09-14 19:48 | Emergency (ER) | payer OTHER, SELFPAY ==
--- NOTE | ~2022-09-14 | XR_ITS ---
EXAM: XR foot RT min 3V DATE: 09/14/2022 20:06 HISTORY: heavy object fell onto distal 1st metatarsal . COMPARISON: None available. FINDINGS: Normal mineralization. Subtle cortical irregularity along the anterolateral aspect of the distal first metatarsal. No lytic or blastic lesion. Joint spaces are maintained. Achilles and planta r enthesopathy. No erosion or periosteal change. Forefoot soft tissue swelling. IMPRESSION: Possible nondisplaced fracture along the anterolateral cortex of the distal right first m etatarsal. Reviewed, dictated and finalized at location [facility]. [facility] IMPRESSION: Possible nondisplaced fracture along the anterolateral cortex of th e distal right first metatarsal.
[2022-09-14 20:01] VITALS: BP 142/81; PULSE 73; RESP 18; TEMP 36.6; O2SAT 100
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
== END 2022-09-14 20:29 | disposition home or self-care (01) ==
PROVIDERS: Emergency Provider Nurse Practitioner; PCP Family Medicine
DX: S92.301A Fracture of unspecified metatarsal bone(s), right foot, initial encounter for closed fracture (principal); W20.8XXA Other cause of strike by thrown, projected or falling object, initial encounter; N80.9 Endometriosis, unspecified; I34.1 Nonrheumatic mitral (valve) prolapse; E03.9 Hypothyroidism, unspecified; E05.90 Thyrotoxicosis, unspecified without thyrotoxic crisis or storm
CPT/HCPCS: 73630; 99214; G0463

== ENCOUNTER 2023-01-09 09:43 | Outpatient (CLI) | payer OTHER, SELFPAY ==
--- NOTE | ~2023-01-09 | XR_ITS ---
Supine views of the abdomen Clinical history: Abdominal pain Findings: Bowel gas pattern is nonspecific. No evidence for obstruction or free air. No abnormal mass lesion or calcification is seen. Cholecystectomy clips noted. Osseous structures are intact. Impression: No significant abnormality is seen. Reviewed, dictated and finalized at [facility]. Impression: No significant abnormality is seen.
== END 2023-01-09 09:44 | disposition home or self-care (01) ==
PROVIDERS: PCP Family Medicine; Visit Provider Physician Assistant
DX: R10.9 Unspecified abdominal pain (principal)
CPT/HCPCS: 74018

== ENCOUNTER 2023-01-09 15:33 | Emergency (ER) | payer OTHER, SELFPAY ==
--- NOTE | ~2023-01-09 | CT_ITS ---
EXAMINATION: CT abdomen pelvis w con DATE: 01/09/2023 20:35 INDICATION: Right lower quadrant abdominal pain TECHNIQUE: Computed tomography (CT) of the abdomen and pelvis was performed with 100 CC Omnipaque 350 intravenous contrast. Automated exposure control and iterative reconstruction technique were employe d. Exam dose: 318.58 mGy-cm total exam DLP. COMPARISON: 01/09/2023 KUB 07/08/2022 CT abdomen pelvis FINDINGS: The lung bases are clear. Normal heart size. No pericardial or pleural effusion. Status post cholecystectomy. The liver, spleen, pancreas, and adrenal glands are unremarkable. 7 mm lower pole right renal cyst probable small posterior mid right renal cyst. Bilateral multiple nonobstructive renal calculi. No ureteral calculus or hydroureteronephrosis. The urinary bladder is evacuated. The uterus and adnex al areas are unremarkable. Normal caliber of the abdominal aorta. No intraperitoneal or retroperitoneal or pelvic mass lesion or adenopathy or ascites. Normal appendix. No bowel obstruction or intraperitoneal free air. Small fat-containing umbilical hernia. IMPRESSION: Normal appendix Bilateral nonobstructive nephrolithiasis Small right renal cysts Status post cholecystectomy Reviewed, dictated and finalized at [facility]. Reviewed, dictated and finalized at location [facility].
[2023-01-09 16:09] VITALS: BP 112/66; PULSE 90; RESP 16; TEMP 36.8; O2SAT 100
[2023-01-09 16:52] LABS: Appearance Urine Clear (Clear); Bacteria Urine None Seen /hpf; Bilirubin Urine Negative (Negative); Blood Urine Negative (Negative); Color Urine Yellow (Yellow); Glucose Urine UA Negative (Negative); Ketones Urine Negative (Negative); Leukocyte Esterase Ur Trace LEU/UL (Negative); Nitrate Urine Negative (Negative); Non Pathogenic Casts 0-2; Protein Urine Negative (Negative); RBC Urine 0-2 /hpf (0-2); Specific Grav Ur 1.008 (1.001-1.035); Squamous Epithelial Cell Urine None seen /hpf (Few); Urobilinogen Urine 0.2 mg/dL (<2.0); WBC Urine 0-5 /hpf
[2023-01-09 16:57] LABS: Basophils Absolute Auto 0.1 K/mm3 (0.0-0.1); Basophils Percent Auto 0.7 % (0.2-1.2); Eosinophils Absolute Auto 0.1 K/mm3 (0-0.3); Eosinophils Percent Auto 1.8 % (0-4.4); Hematocrit 38.4 % (37.0-47.0); Hemoglobin 12.5 g/dL (12.0-15.0); Immature Granulocyte Absolute 0.02 K/mm3 (0.00-0.031); Immature Granulocyte Percent A 0.3 % (0-0.5); Lymphocytes Absolute Auto 2.08 K/mm3 (0.9-3.2); Lymphocytes Percent Auto 29.3 % (18.3-44.2); Mean Corpuscular HGB Conc 32.6 g/dl (32-36); Mean Corpuscular Hemoglobin 30.7 pg (26-34); Mean Corpuscular Volume 94.3 fl (80-100); Mean Platelet Volume 9.5 fl (7.4-10.4); Monocytes Absolute Auto 0.5 K/mm3 (0.1-0.6); Monocytes Percent Auto 6.8 % (2.6-8.5); Neutrophils Absolute Auto 4.3 K/mm3 (1.3-6.7); Neutrophils Percent Auto 61.1 % (45.5-73.1); Platelet Count Result 234 k/mm3 (150-375); Red Blood Count 4.07 M/mm3 (4.2-5.4); Red Cell Distribution Width 12.5 % (11.5-14.5); White Blood Count 7.1 K/mm3 (4.5-10.0)
[2023-01-09 16:58] LABS: Alanine Aminotransferase 17 U/L (6-35); Albumin Level 4.9 g/dL (3.5-5.1); Alkaline Phosphatase 71 U/L (38-126); Anion Gap 7 mmol/L (8-16); Aspartate Amino Transferase 39 U/L (14-36); Bilirubin,Total 0.5 mg/dL (0.2-1.3); Blood Urea Nitrogen 15 mg/dL (7-17); Calcium 9.4 mg/dL (8.4-10.2); Carbon Dioxide 28 mmol/L (22-30); Chloride 104 mmol/L (98-107); Estimated CRCL calculation 92 ml/min; Estimated Glomerular Filt Rate > 60; Glucose 82 mg/dL (65-110); Lipase 129 U/L (23-300); Sodium 139 mmol/L (137-145)
[2023-01-09 17:00] LABS: Add Urine Microscopic? YES
--- NOTE | 2023-01-09 19:34 | ED.GENADULT ---
HPI - General Adult General Chief complaint: Abdominal Pain Stated complaint: Right sided Abdominal Pain Time Seen by Provider: 01/09/23 19:33 History of Present Illness HPI narrative: Patient 42-year-old female who presents the emergency department with chief complaint of right lower quadrant abdominal pain. Patient reports that on Friday she started having pain to the right lower quadrant radiates to her back. The patient states the pain is sharp reports that its can there all the time but worse with palpation and worse with releasing the area. The patient reports little bit of nausea with this denies fever but does report that she has had some chills. The patient reports she saw her primary care provider today who noticed that she may have had some blood in her urine and recommended that if her pain worsens she should come to the emergency department. Patient states that she took a small dose of Tylenol with codeine that did not help with pain. Patient does report that she has prior history of a prolonged QT and has to be cautious with medications. The patient reports she has had a prior cholecystectomy and reports a prior . Related Data Home Medications Medication Instructions Recorded Confirmed metoprolol succinate 25 mg 12.5 mg PO DAILY 01/29/22 10/30/22 tablet,extended release 24 hr L. crispatus, gasseri, jensenii, tablet PO 01/09/23 rhamnosus 12 billion cell chew tablet ([facility]) Allergies Allergy/AdvReac Type Severity Reaction Status Date / Time metoclopramide Allergy Severe DYSRHYTHMIA Verified 01/09/23 15:34 S ondansetron Allergy Severe DYSRHYTHMIA Verified 01/09/23 15:34 S PROLONGED QT DRUGS Allergy Severe DYSRHYTHMIA Uncoded 01/09/23 15:34 S Review of Systems Review of Systems: A 10 system review of systems was completed on the patient and is negative except for what is stated in the HPI. Nursing and ancillary documentation was reviewed. [facility] Past Medical History Medical History Abdominal pain Anxiety Bronchitis Chronic rhinitis Dysphagia Endometriosis Headache Hyperthyroidism Hypothyroidism Iron deficiency anemia Melanoma left wrist Meningitis Mitral valve prolapse Moderate episode of recurrent major depressive disorder Ovarian cyst Ulcer Uterine fibroid Surgical History Surgical History H/O laparoscopy H/O removal of cyst History of right oophorectomy History of surgical removal of skin lesion Hx of section Hx of cholecystectomy Lumbar puncture headache Family History Family History Other Congenital long QT syndrome Diabetes mellitus Family history of coronary artery disease Hypertension Lupus Social History Social History Smoking status: Never smoker Second hand tobacco smoke exposure: No Alcohol intake: never Substance use: never Substance use type: does not use Lack of Transportation: No Lack of Food: Sometimes True Current Housing: I Have Housing Concerned About Future Housing: No Difficulty Paying Gas/Electric Bills: No Difficulty Paying for Meds: No Currently Unemployed: No Education: Bachelor's Degree Difficulty w/ Childcare or Family Care: No Living arrangements: with family Gender identity (if verbalized by the patient): Female Sexual Orientation (if Verbalized by the Patient): Straight or Heterosexual Spiritual care concerns: No Agree to blood products: Yes Exam Narrative: GENERAL: Well-appearing, well-nourished, and in no acute distress. HEAD: Normocephalic, atraumatic. EYES: PERRLA and EOMI. ENT: Nares clear, no rhinorrhea or epistaxis. Mucous membranes moist. NECK: Supple. CHEST: Clear to auscultat
[2023-01-09] MEDS: SODIUM CHLORIDE 0.9% IV 1,000 ML 999 ML IV CONT (20:01)
[2023-01-09 20:13] LABS: Pregnancy On Board Control Positive; Urine Pregnancy Test Negative
[2023-01-09] MEDS: KETOROLAC 30 MG/ML VIAL (*BKC) 15 MG IV PUSH (20:18)
== END 2023-01-09 21:38 | disposition home or self-care (01) ==
PROVIDERS: Emergency Medicine; Emergency Provider Emergency Medicine; PCP Family Medicine
DX: R10.31 Right lower quadrant pain (principal)
CPT/HCPCS: 36415; 74177; 80053; 81001; 81025; 83690; 85025; 96361; 96374; 99284; J1885; J7030; Q9967

== ENCOUNTER → 2023-01-16 09:37 | Outpatient (CLI) | payer OTHER, SELFPAY ==
--- NOTE | ~2023-01-16 | XR_ITS ---
Lumbosacral Spine: AP, oblique, and lateral views Clinical History: Pain Findings: The normal lordotic curve is maintained. The vertebral bodies and posterior elements are i ntact. There is minimal degenerative disc narrowing at L4-L5. Remaining disc spaces are preserved. Th ere is moderate facet arthropathy from L4 through S1. The sacroiliac joints are normally outlined. Impression: Facet joint degenerative change, as above. Reviewed, dictated and finalized at location [facility]. Impression: Facet joint degenerative change, as above.
== END ==
PROVIDERS: PCP Family Medicine; Visit Provider Physician Assistant Medical
DX: M54.30 Sciatica, unspecified side (principal)
CPT/HCPCS: 72110

== ENCOUNTER 2023-06-05 10:27 | Outpatient (CLI) | payer OTHER, SELFPAY ==
--- NOTE | ~2023-06-05 | XR_ITS ---
EXAMINATION: XR chest 2V DATE: 06/05/2023 10:59 INDICATION: Shortness of breath TECHNIQUE: PA and lateral views of the chest were obtained. COMPARISON: Chest radiograph dated 05/20/2022 FINDINGS: The lungs remain clear with no focal airspace opacities, pulmonary edema, pleural effusion or pneumot horax. The cardiomediastinal silhouette is normal. Cholecystectomy clips in right upper quadrant. Mod erate thoracic spondylosis. IMPRESSION: 1. No acute cardiopulmonary disease. Reviewed, dictated and finalized at location A.
--- NOTE | 2023-06-05 10:42 | ECG_ITS ---
Measurements Intervals [place] Rate: 53 P: 70 ID: [id number] QRS: 79 QRSD: 88 T: 42 QT: 441 QTc: 415 Interpretive Statements SINUS BRADYCARDIA LOW QRS VOLTAGE IN PRECORDIAL LEADS [QRS DEFLECTION < 1.0 mV IN CHEST LEADS] BORDERLINE ECG COMPARED TO ECG 06/04/2022 10:20:29 NO SIGNIFICANT CHANGE Electronically Signed On 06-05-2023 13:27:55 CDT by Adriel Lucas M.D.
== END 2023-06-05 10:28 | disposition home or self-care (01) ==
LOC: ANHCARD 10:29
PROVIDERS: PCP Family Medicine; Visit Provider Physician Assistant
DX: R07.89 Other chest pain (principal); R06.02 Shortness of breath
CPT/HCPCS: 71046; 93005

== ENCOUNTER 2023-07-29 09:52 | Outpatient (CLI) | payer OTHER, SELFPAY ==
[2023-07-29 10:46] LABS: Free T4 Free Thyroxine 1.32 ng/mL (0.78-2.19)
[2023-07-29 10:57] LABS: Thyroid Stimulating Hormone 0.844 uIU/mL (0.465-4.680)
== END 2023-07-29 09:53 | disposition home or self-care (01) ==
LOC: ANHLAB 09:53
PROVIDERS: PCP Family Medicine; Visit Provider Internal Medicine
DX: E03.9 Hypothyroidism, unspecified (principal)
CPT/HCPCS: 36415; 84439; 84443

== ENCOUNTER 2024-05-05 15:48 | Emergency (ER) | payer OTHER, SELFPAY ==
--- NOTE | ~2024-05-05 | XR_ITS ---
XR chest 2V Ordering provider: Russ Byrd MD History: 43 years Female with . chest pain . Comparison: June 05, 2023 FINDINGS: MEDIASTINUM: The cardiac silhouette is not enlarged. LUNGS: No infiltrates, effusions or pneumothorax. OTHER: No free air under the diaphragm. IMPRESSION: No acute cardiopulmonary pathology. Reviewed, dictated and finalized at location A.
--- NOTE | 2024-05-05 15:51 | ECG_ITS ---
Test Date: 2024-05-05 15:57:37 Measurements Intervals [place] Rate: 71 P: 76 [place]: 181 QRS: 79 QRSD: 84 T: 53 QT: 389 QTc: 424 Interpretive Statements SINUS RHYTHM BASELINE ARTIFACT- I, III, AVL NORMAL ECG No previous ECG available for comparison Electronically Signed On 05-05-2024 17:16:22 CDT by Angel Cortés D.O.
[2024-05-05 15:54] VITALS: BP 122/79; PULSE 72; RESP 16; TEMP 36.7; O2SAT 100
[2024-05-05 16:05] VITALS: PULSE 85
[2024-05-05 16:18] LABS: Basophils Absolute Auto 0.1 K/mm3 (0.0-0.1); Eosinophils Absolute Auto 0.3 K/mm3 (0-0.3); Eosinophils Percent Auto 4.5 % (0-4.4); Hematocrit 37.9 % (37.0-47.0); Hemoglobin 12.6 g/dL (12.0-15.0); Immature Granulocyte Absolute 0.01 K/mm3 (0.00-0.031); Immature Granulocyte Percent A 0.2 % (0-0.5); Lymphocytes Absolute Auto 1.98 K/mm3 (0.9-3.2); Lymphocytes Percent Auto 32.9 % (18.3-44.2); Mean Corpuscular HGB Conc 33.2 g/dl (32-36); Mean Corpuscular Hemoglobin 30.9 pg (26-34); Mean Corpuscular Volume 92.9 fl (80-100); Mean Platelet Volume 9.4 fl (7.4-10.4); Monocytes Absolute Auto 0.4 K/mm3 (0.1-0.6); Monocytes Percent Auto 7.3 % (2.6-8.5); Neutrophils Absolute Auto 3.3 K/mm3 (1.3-6.7); Neutrophils Percent Auto 54.1 % (45.5-73.1); Platelet Count Result 223 k/mm3 (150-375); Red Blood Count 4.08 M/mm3 (4.2-5.4)
--- NOTE | 2024-05-05 16:23 | ED.CHESTPAIN ---
HPI - Chest Pain General Chief Complaint: Chest Pain Stated Complaint: chest pain Time Seen by Provider: 05/05/24 15:52 History of Present Illness HPI narrative: Patient is a 43-year-old female who presents ER with chest pressure. Central. Nonradiating. Following 1st had it 2 days ago but it came back today. She does not have dyspepsia or worsening symptoms with lying down. She does sometimes feel like she cannot get her breath out. No pain with deep breath. No cough. No fevers or chills. Has history of long QT syndrome and frequent PVCs. She is taking metoprolol today without any improvement. Related Data Allergies Allergy/AdvReac Type Severity Reaction Status Date / Time metoclopramide Allergy Severe DYSRHYTHMIA Verified 05/05/24 16:03 S ondansetron Allergy Severe DYSRHYTHMIA Verified 05/05/24 16:03 S sertraline [From Zoloft] Allergy Mild Other Verified 05/05/24 16:03 PROLONGED QT DRUGS Allergy Severe DYSRHYTHMIA Uncoded 05/05/24 16:03 S Review of Systems Review of Systems: All systems reviewed & are unremarkable except as noted in HPI and below Constitutional: Constitutional: Reports no additional constitutional complaints ENT: Reports system reviewed and no additional complaints, except as documented Cardiovascular: Cardiovascular: Reports chest pain, Denies rapid heart rate and Denies radiating jaw, neck or arm pain Respiratory: Respiratory: Denies chest congestion, Denies cough, Reports dyspnea and Denies wheezing Gastrointestinal: Gastrointestinal: Reports no additional gastrointestinal complaints Genitourinary: Genitourinary: Reports no additional female genitourinary complaints [facility] Past Medical History Medical History Anxiety Endometriosis Hypothyroidism Iron deficiency anemia Melanoma left wrist Mitral valve prolapse Moderate episode of recurrent major depressive disorder Ovarian cyst Uterine fibroid Surgical History Surgical History H/O laparoscopy H/O removal of cyst History of right oophorectomy History of surgical removal of skin lesion Hx of section Hx of cholecystectomy Lumbar puncture headache Family History Family History Other Congenital long QT syndrome Diabetes mellitus Family history of coronary artery disease Hypertension Lupus Social History Social History Smoking status: Never smoker Second hand tobacco smoke exposure: No Alcohol intake: never Substance use: never Substance use type: does not use Lack of Transportation: No Lack of Food: Sometimes True Current Housing: I Have Housing Concerned About Future Housing: No Difficulty Paying Gas/Electric Bills: No Difficulty Paying for Meds: No Currently Unemployed: No Education: Bachelor's Degree Difficulty w/ Childcare or Family Care: No Living arrangements: with family Gender identity (if verbalized by the patient): Female Sexual Orientation (if Verbalized by the Patient): Straight or Heterosexual Spiritual care concerns: No Agree to blood products: Yes Exam Narrative: GENERAL: Well-appearing, well-nourished, and in no acute distress. HEAD: Normocephalic, atraumatic. ENT: Mucous membranes moist. Mild pharyngeal erythema without tonsillar hypertrophy or exudate CHEST: Clear to auscultation. No respiratory distress. HEART: Regular rate and rhythm. Normal peripheral pulses. EXTREMITIES: Normal range of motion. No edema. SKIN: Warm, dry, no rash. NEURO: Alert and oriented x3. PSYCH: Normal mood and affect. Course Vital Signs Vital signs: Vital Signs Temperature 98.0 F 05/05/24 15:54 Pulse Rate 72 05/05/24 15:54 Respiratory Rate 16 05/05/24 15:54 Blood Pressure 122/79 05/05/24 15:54 Pulse Oximetry 100
[2024-05-05 16:30] LABS: Alanine Aminotransferase 11 U/L (6-35); Albumin Level 4.7 g/dL (3.5-5.1); Alkaline Phosphatase 56 U/L (38-126); Anion Gap 8 mmol/L (4-12); Aspartate Amino Transferase 35 U/L (14-36); Bilirubin,Total 0.6 mg/dL (0.2-1.3); Blood Urea Nitrogen 11 mg/dL (7-17); Calcium 9.3 mg/dL (8.4-10.2); Carbon Dioxide 29 mmol/L (22-30); Chloride 103 mmol/L (98-107); Estimated CRCL calculation 80 ml/min; Estimated Glomerular Filt Rate > 60; Glucose 94 mg/dL (65-110); Lipase 152 U/L (23-300); Potassium 3.8 mmol/L (3.4-5.0); Sodium 140 mmol/L (137-145)
[2024-05-05 16:34] LABS: Prothrombin Time 13.2 Seconds (11.1-14.7)
[2024-05-05 16:35] LABS: Partial Thromboplastin Time 30.1 Seconds (22.3-36.8)
[2024-05-05 16:41] LABS: D Dimer 0.29 ug/mL (<0.48); Troponin I < 0.012 ng/mL (0.000-0.034)
[2024-05-05 16:54] LABS: Influenza A QL RT-PCR Negative (Negative); Influenza B QL RT-PCR Negative (Negative); RSV RNA, RT-PCR Negative (Negative); SARS-CoV-2 RNA PCR Negative (Negative)
[2024-05-05 18:32] VITALS: BP 110/65; PULSE 65; RESP 15; O2SAT 100
== END 2024-05-05 18:34 | disposition home or self-care (01) ==
PROVIDERS: Emergency Provider Emergency Medicine; PCP Family Medicine
DX: R06.00 Dyspnea, unspecified (principal); Z20.822 Contact with and (suspected) exposure to COVID-19; I34.1 Nonrheumatic mitral (valve) prolapse; D50.9 Iron deficiency anemia, unspecified; F41.9 Anxiety disorder, unspecified; Z85.820 Personal history of malignant melanoma of skin; Z90.721 Acquired absence of ovaries, unilateral; Z90.49 Acquired absence of other specified parts of digestive tract; Z79.899 Other long term (current) drug therapy
CPT/HCPCS: 36415; 71046; 80053; 83690; 84484; 85025; 85380; 85610; 85730; 87637; 93005; 99284

== ENCOUNTER 2024-05-23 08:14 | Emergency (ER) | payer OTHER, SELFPAY ==
--- NOTE | ~2024-05-23 | XR_ITS ---
Right Hand Technique: PA, oblique, and lateral views were obtained. Clinical History: Pain, middle finger swelling Findings: No acute fracture or dislocation is seen. Osseous alignment is anatomic. Joint spaces are p reserved. Soft tissues are unremarkable. Impression: Unremarkable right hand. Reviewed, dictated and finalized at location . Impression: Unremarkable right hand.
[2024-05-23 08:27] VITALS: BP 113/77; PULSE 83; RESP 16; TEMP 37.2; O2SAT 100
[2024-05-23 08:32] VITALS: BP 113/77; PULSE 83; RESP 16; TEMP 37.2; O2SAT 100
--- NOTE | 2024-05-23 08:34 | ED.EXTPRO ---
HPI - Extremity Problem General Chief complaint: Extremity Problem,Nontraumatic Stated complaint: Swollen Finger Right Hand Time Seen by Provider: 05/23/24 08:40 Source: patient and RN notes reviewed Mode of arrival: ambulatory Limitations: no limitations History of Present Illness HPI Narrative: 43-year-old female presents with concern for pain to the 3rd digit of the right hand. She reports pain is at the PIP joint, MIP joint and radiates down the palmar aspect of the hand. She denies injury or trauma. Reports there has been swelling. She reports she woke up this morning and was much more swollen. She reports symptoms started couple of days ago. Reports a doctor at her work prescribed her amoxicillin for possible paronychia, however that did not make any difference. She reports the tip of her finger and around her nail bed are not painful at all. MD Complaint: extremity pain and extremity swelling Related Data Home Medications Medication Instructions Recorded Confirmed amoxicillin 500 mg capsule 500 mg PO TID PRN Anxiety 05/23/24 05/23/24 Allergies Allergy/AdvReac Type Severity Reaction Status Date / Time metoclopramide Allergy Severe DYSRHYTHMIA Verified 05/23/24 08:28 S ondansetron Allergy Severe DYSRHYTHMIA Verified 05/23/24 08:28 S sertraline [From Zoloft] Allergy Mild Other Verified 05/23/24 08:28 PROLONGED QT DRUGS Allergy Severe DYSRHYTHMIA Uncoded 05/23/24 08:28 S Review of Systems Review of Systems: CONSTITUTIONAL: Denies malaise, chills, sweats, or fever. SKIN: Denies rash or itching, open skin, laceration, abrasion, redness, warmth MUSCULOSKELETAL: Reports pain and swelling to the 3rd digit of the right hand NEUROLOGIC: Denies numbness, weakness All systems reviewed & are unremarkable except as noted in HPI and below PMFSH Past Medical History Medical History Anxiety Endometriosis Hypothyroidism Iron deficiency anemia Melanoma left wrist Mitral valve prolapse Moderate episode of recurrent major depressive disorder Ovarian cyst Uterine fibroid Surgical History Surgical History H/O laparoscopy H/O removal of cyst History of right oophorectomy History of surgical removal of skin lesion Hx of section Hx of cholecystectomy Lumbar puncture headache Family History Family History Other Congenital long QT syndrome Diabetes mellitus Family history of coronary artery disease Hypertension Lupus Social History Social History Smoking status: Never smoker Second hand tobacco smoke exposure: No Alcohol intake: never Substance use: never Substance use type: does not use Lack of Transportation: No Lack of Food: Sometimes True Current Housing: I Have Housing Concerned About Future Housing: No Difficulty Paying Gas/Electric Bills: No Difficulty Paying for Meds: No Currently Unemployed: No Education: Bachelor's Degree Difficulty w/ Childcare or Family Care: No Living arrangements: with family Gender identity (if verbalized by the patient): Female Sexual Orientation (if Verbalized by the Patient): Straight or Heterosexual Spiritual care concerns: No Agree to blood products: Yes Comments At time of signature, agree with nursing past medical, surgical, social and family history. There is no relevant family history pertinent to the presenting complaint Exam Narrative: GENERAL: Well-appearing, well-nourished, and in no acute distress. HEAD: Normocephalic EYES: PERRLA, conjunctivae clear NECK: Supple. CHEST: Speaks in full sentences. No respiratory distress. HEART: Regular rate and rhythm. Normal and equal peripheral pulses. EXTREMITIES: Right and digits of hand have normal strength and sensation. 5/5 strength with dig
== END 2024-05-23 09:06 | disposition home or self-care (01) ==
PROVIDERS: Emergency Provider Nurse Practitioner; PCP Family Medicine
DX: M79.641 Pain in right hand (principal); N80.9 Endometriosis, unspecified; E03.9 Hypothyroidism, unspecified; I34.1 Nonrheumatic mitral (valve) prolapse; Z85.820 Personal history of malignant melanoma of skin
CPT/HCPCS: 29130; 73130; 99213; G0463

== ENCOUNTER 2024-11-11 11:10 | Outpatient (CLI) | payer OTHER, SELFPAY ==
--- NOTE | ~2024-11-11 | MMUS_ITS ---
EXAMINATION: MM diagnostic dayo BI w marilyn, US breast RT limited HISTORY: Palpable right breast abnormality TECHNIQUE: Additional 3-D tomosynthesis images of the breasts were performed and synthetic 2-D images were generated. CAD analysis was submitted and interpreted. High resolution Limited right breast ult rasound was performed. COMPARISON: None BREAST PARENCHYMAL COMPOSITION: Dense: The breasts are heterogeneously dense, which may obscure small masses FINDINGS: MAMMOGRAPHIC FINDINGS: The breasts are symmetric. There are no suspicious masses, calcifications or architectural distortion in either breast to suggest malignancy. ULTRASOUND: Limited right breast ultrasound: Normal heterogeneous echotexture without focal solid or cystic mass. IMPRESSION: 1. No evidence for malignancy in either breast. 2. Routine yearly screening mammogram and regular clinical breast examination are recommended. BI-RADS Category 1: Negative Reviewed, dictated and finalized at location A. [facility] [employer] IMPRESSION: 1. No evidence for malignancy in either breast. 2. Routine yearly screening mammogram and regular clinical breast examination a re recommended. BI-RADS Category 1: Negative
== END 2024-11-11 11:11 | disposition home or self-care (01) ==
LOC: ANHIMG 11:11
PROVIDERS: PCP Family Medicine; Visit Provider Obstetrics & Gynecology
DX: R92.8 Other abnormal and inconclusive findings on diagnostic imaging of breast (principal)
CPT/HCPCS: 76642; 77062; 77066; G0279

== ENCOUNTER 2025-06-13 07:55 | Outpatient (CLI) | payer OTHER, SELFPAY | END 2025-06-13 07:56 | disposition home or self-care (01) | LOC: ANHEH 07:57 | PROVIDERS: PCP Family Medicine | DX: Z02.89 Encounter for other administrative examinations (principal) | CPT/HCPCS: 80307 ==

== ENCOUNTER 2025-08-02 06:55 | Outpatient (CLI) | payer OTHER, SELFPAY ==
[2025-08-02] MEDS: COSYNTROPIN 0.25 MG/ML VIAL IM (07:30)
[2025-08-02 10:38] LABS: Cortisol 60 Minute 19.80 ug/dL
== END 2025-08-02 06:56 | disposition home or self-care (01) ==
LOC: ANHLAB 06:57
PROVIDERS: PCP Family Medicine; Visit Provider Internal Medicine
DX: E03.9 Hypothyroidism, unspecified (principal); E55.9 Vitamin D deficiency, unspecified; E53.8 Deficiency of other specified B group vitamins; I45.81 Long QT syndrome; R00.2 Palpitations; F33.1 Major depressive disorder, recurrent, moderate; D50.9 Iron deficiency anemia, unspecified; G43.909 Migraine, unspecified, not intractable, without status migrainosus; R06.83 Snoring
CPT/HCPCS: 36415; 82533; 96372; J0834

== ENCOUNTER 2025-08-07 15:36 | Emergency (ER) | payer OTHER, SELFPAY ==
--- OUTSIDE RECORDS SUMMARY | 2017-12-25 08:34 | XMS_ITS | Continuity of Care Document ---
Author Organization [facility] Address [address] [place] [address] Phone Care Team Providers Care Mri Assistant Name Role Phone Shady Winters MD Unavailable Unavailable Medications Medication Instructions Dosage Effective Dates (start - stop) Status Comments dicyclomine 10 mg capsule take 1 capsule by oral route 3 times every day 10 MG - Active LEVOTHYROXINE SODIUM (unknown strength) take 1 tablet by oral route every day Not Available - Active DILTIAZEM HCL (unknown strength) take 1 tablet by oral route 4 times every day Not Available - Active Advance Directives Directive Yes / No Effective Date File Name No Information Encounters Encounter Description Practice Location Reason(s) For Visit Diagnoses Date Provider Providers Copied on Encounter [facility], [address], [place], [place], [id number], tel:[phone] [facility] No Information Singh Caruso. [address], [place], [address], [place]. tel:[phone] [facility], [address], [place], [place], [id number], tel:[phone] [facility] RLQ abdominal painChange in bowel habitsDiarrhe a, unspecified type Singh Caruso. [address], [address], [place], [address], [place]. tel:[phone] Referring Provider: Michelle Moreira, [address] [place], [address]. tel:[phone] Family History Family Member Type Diagnosis Age At Onset No Information Payers Payer name Insurance type Covered democrat ID Lenard brandt(s) [facility] CI [id number] Social History Type Description Quantity Date Captured Comments Alcohol Use Details Unknown Caffeine Use Details Unknown Tobacco Use Status No Information Smoking Status No Information Sex Female Chief Complaint And Reason For Visit No Information Reason For Referral Reason For Referral No Information History Of Present Illness Encounter Date Complaint History Of Prese nt Illness No Information Functional Status Date Functional Assessmen t No Information Instructions Date Instruction Additional Infor mation No Information Assessments Type Assessment Date No Information Patient Care Teams Name Effective Dates (start - stop) Status Members No Information
--- NOTE | ~2025-08-07 | CT_ITS ---
Magui Cano EXAMINATION: CT abdomen pelvis w con COMPARISON: None HISTORY: rlq abd pain TECHNIQUE: Axial images were obtained through the abdomen, pelvis post administration of IV contrast. Oral contrast was also administered. Coronal reconstruction images were obtained from the axial views. CT scan performed using dose optimization techniques including the following automated exposure control; adjustment of mA and/or kV; use of iterative reconstruction technique. Automatic exposure control was used to reduce radiation dose. Permanent radiation dose record is archived to PACS. FINDINGS: CT abdomen: LUNG BASES: The lung bases are clear. The visualized portions of the heart and pericardium are unremarkable. LIVER: Unremarkable, liver contours intact, no lesions. SPLEEN: Unremarkable. KIDNEYS: Right Kidney: Unremarkable. No calculi. No hydronephrosis. Left Kidney: Unremarkable. No calculi. No hydronephrosis ADRENAL GLANDS: Unremarkable. PANCREAS: Unremarkable. GALLBLADDER/BILIARY: Post cholecystectomy. STOMACH AND ESOPHAGUS: Visualized stomach and esophagus within normal limits. BOWEL/MESENTERY: Moderate fecal content, no colitis or diverticulitis. Appendix normal. Mesentery normal. No thickening or dilated loops of small bowel. ADENOPATHY/RETROPERITONEUM: No lymphadenopathy. AORTA/VASCULATURE: Normal caliber aorta. FREE FLUID OR FREE AIR: Minimal free fluid.. CT pelvis: SOLID ORGANS/REPRODUCTIVE: Left ovary cystic lesion 3 x 3 cm probable functional cyst, pelvic ultrasound recommended in 6 weeks to assess resolution. BLADDER: Within normal limits. OSSEOUS STRUCTURES: No acute osseous abnormality.No suspicious lesions. OVERLYING SOFT TISSUES: Unremarkable. IMPRESSION: No acute intra-abdominal process. Incidental findings above Reviewed, dictated and finalized at location P.
--- NOTE | ~2025-08-07 | US_ITS ---
EXAMINATION: US transvaginal, 08/07/2025 18:50 CDT HISTORY: rlq, poss ovarian torsion? Comparison: Comparison CT recently obtained. Technique: Beavers-scale and color Doppler images were obtained. Findings: Uterus: Uterus anteverted 8.5 x 4.6 x 5.2 cm, mid uterine body fibroid 2.2 x 2.4 cm. . Endometrium 5 mm Right Ovary:Probable right ovary measures 1.9 x 1.5 x 1.5 cm, correlation with surgical history is recommended, there is no adnexal mass or abnormal flow. Left Ovary: Left ovary 3.3 x 1.4 x 2.2 cm, with dominant follicle 2.8 x 2.5 cm, no adnexal mass, normal flow. Free Fluid: None Impression: Probable dominant follicle left ovary correlating with the previous CT findings. Please see above Reviewed, dictated and finalized at location P. Impression: Probable dominant follicle left ovary correlating with the previous CT findings . Please see above
[2025-08-07 15:46] VITALS: BP 124/81; PULSE 65; RESP 17; TEMP 36.6; O2SAT 100
--- NOTE | 2025-08-07 15:55 | ECG_ITS ---
Test Date: 2025-08-07 16:06:24 Measurements Intervals [place] Rate: 64 P: 69 CT: 159 QRS: 78 QRSD: 94 T: 38 QT: 391 QTc: 405 Interpretive Statements SINUS RHYTHM T WAVE ABNORMALITY IN ANTERIOR LEADS- CONSIDER ISCHEMIA BASELINE ARTIFACT- I, III, AVL ABNORMAL ECG Compared to ECG 05/05/2024 15:57:37 T WAVE ABNORMALTY NOW PRESENT POSSIBLE ISCHEMIA NOW PRESENT Electronically Signed On 08-07-2025 16:54:57 CDT by Angel Cortés D.O.
--- NOTE | 2025-08-07 16:06 | ED.ABDPAIN ---
HPI - Abdominal Pain General Chief Complaint: Abdominal Pain Stated Complaint: R sided abd pain Time Seen by Provider: 08/07/25 15:54 Source: patient Mode of arrival: ambulatory Limitations: no limitations History of Present Illness HPI narrative: This is a 45-year-old female with history of endometriosis and congenital long QT syndrome who presents the ED for abdominal pain, nausea, vomiting, diarrhea. Patient states that yesterday, she had onset diarrhea but she does have a history of IBS so this was not terribly unusual for her. However, this morning, she also began to have right lower quadrant abdominal pain with nausea. She was concerned that she may have an appendicitis prompting her to come to the ED. She does have a prior history of endometriosis for which she had a partial oophorectomy on the right. Related Data Allergies Allergy/AdvReac Type Severity Reaction Status Date / Time metoclopramide Allergy Severe DYSRHYTHMIA Verified 05/26/25 11:20 S ondansetron Allergy Severe DYSRHYTHMIA Verified 05/26/25 11:20 S sertraline (From Zoloft) Allergy Mild Other Verified 05/26/25 11:20 PROLONGED QT DRUGS Allergy Severe DYSRHYTHMIA Uncoded 05/26/25 11:20 S Review of Systems Review of Systems: Gen.: Denies fevers or chills Eyes: Denies eye pain or visual change ENT: Denies congestion Respiratory: Denies shortness of breath or cough CV: Denies chest pain or palpitations GI: As per HPI denies burning, urgency, frequency or hematuria Musculoskeletal: Denies back pain or muscle pain Neuro: Denies numbness, tingling, weakness or focal weakness Skin: Denies rash Except as documented, all other systems reviewed and negative [facility] Past Medical History Medical History Melanoma left wrist Anxiety Ovarian cyst Uterine fibroid Endometriosis Mitral valve prolapse Hypothyroidism Iron deficiency anemia Moderate episode of recurrent major depressive disorder Surgical History Surgical History History of surgical removal of skin lesion History of right oophorectomy Hx of section H/O removal of cyst H/O laparoscopy Hx of cholecystectomy Lumbar puncture headache Family History Family History Other Congenital long QT syndrome Diabetes mellitus Family history of coronary artery disease Hypertension Lupus Social History Social History Smoking status: Never smoker Second hand tobacco smoke exposure: No Alcohol intake: never Substance use: never Substance use type: does not use Lack of Transportation: No Lack of Food: Sometimes True Current Housing: I Have Housing Concerned About Future Housing: No Difficulty Paying Gas/Electric Bills: No Difficulty Paying for Meds: No Currently Unemployed: No Education: Bachelor's Degree Difficulty w/ Childcare or Family Care: No Living arrangements: with family Gender identity (if verbalized by the patient): Female Sexual Orientation (if Verbalized by the Patient): Straight or Heterosexual Spiritual care concerns: No Agree to blood products: Yes Exam Narrative: APPEARANCE: No acute distress, nontoxic, resting in bed EYES: EOMI HEENT: Normocephalic, atraumatic, OMM RESPIRATORY: No respiratory distress Clear to auscultation bilaterally with no rhonchi wheezing or rales. CARDIOVASCULAR: Regular rate and rhythm without murmurs rubs or gallops. ABDOMINAL: Soft, tenderness to palpation to the right lower quadrant without rebound or guarding MUSCULOSKELETAl: Moves all extremities. No clubbing, cyanosis or edema. NEURO: Awake and alert. Following commands, speech normal, no focal deficits SKIN:: Warm, dry. No rashes lesions or abrasions PSYCHIATRIC: Normal affect/mood, Course Vital Signs Vital signs: Vital Signs Temperature 97.9 F 08/07/25 15:46 Pulse Rate 65 08/07/25 15:46 Respiratory Rate 17 08/07/25 15:46 Blood Pressure 124/81 08/07/25 15:46 Pulse Oximetry 100 08/07/25 15:46 Oxygen Delivery Room Air 08/07/25 15:46 Temperature 97.9 F 08/07/25 15:46 Pulse Rate 64 08/07/25 20:11 Respiratory Rate 14 08/07/25 20:11 Blood Pressure 120/83 08/07/25 20:11 Pulse Oximetry 100 08/07/25 20:11 Oxygen Delivery Room Air 08/07/25 15:46 MDM - Abdominal Pain MDM Narrative Medical decision making narrative: 45-year-old female presenting for right lower quadrant abdominal pain. On initial evaluation, patient was in no acute distress, afebrile, hemodynamically stable. She did have tenderness palpation to the right lower quadrant without rebound or guarding. Patient was given Toradol. She was not given antiemetics and was not requesting any at this time due to her history of congenital long QT. CBC and CMP were without significant abnormalities. CT abdomen/pelvis was obtained there was a noted left ovarian cyst but no acute abnormalities otherwise. Patient continued to have pain so transvaginal ultrasound was obtained to rule out ovarian torsion or other ovarian pathology. This was negative. Suspect her pain may be due to underlying IBS or potentially due to her prior endometriosis. Because of this, she was given a prescription for Bentyl, [place], Lidoderm. She was advised follow-up with her tour director this week. She was also given a referral to GI in the event that this is related to her IBS. Patient was agreeable to this plan. Given strict return precautions. Differential Diagnosis Differential diagnosis: Likely abdominal pain, acute appendicitis, calculus of kidney, constipation, endometriosis, small bowel obstruction and other (Ovarian torsion, ovarian cyst,) Medical Records Attestation: I reviewed the patient's medical records. Lab Data Attestation: I reviewed the patient's lab results. 08/07/25 16:11 08/07/25 16:11 Labs: Lab Results 08/07/25 08/07/25 Range/Units 16:11 17:19 WBC 6.4 (4.5-10.0) K/mm3 RBC 4.41 (4.2-5.4) M/mm3 Hgb 13.2 (12.0-15.0) g/dL Hct 40.4 (37.0-47.0) % MCV 91.6 (80-100) fl MCH 29.9 (26-34) pg MCHC 32.7 (32-36) g/dl RDW 12.4 (11.5-14.5) % Plt Count 245 (150-375) k/mm3 MPV 9.1 (7.4-10.4) fl Immature Gran % (Auto) 0.2 (0-0.5) % Neut % (Auto) 64.7 (45.5-73.1) % Lymph % (Auto) 24.1 (18.3-44.2) % Cache % (Auto) 7.9 (2.6-8.5) % Eos % (Auto) 2.2 (0-4.4) % Baso % (Auto) 0.9 (0.2-1.2) % Lymph # (Auto) 1.55 (0.9-3.2) K/mm3 Cache # (Auto) 0.5 (0.1-0.6) K/mm3 Eos # (Auto) 0.1 (0-0.3) K/mm3 Baso # (Auto) 0.1 (0.0-0.1) K/mm3 Abs Immat Gran (auto) 0.01 (0.00-0.031) K/mm3 Absolute Neuts (auto) 4.2 (1.3-6.7) K/mm3 Absolute Nucleated RBC 0.000 (0.0-0.012) K/mm3 Nucleated RBC % 0.0 (0.0-0.2) % Sodium 137 (137-145) mmol/L Potassium 4.1 (3.4-5.0) mmol/L Chloride 101 (98-107) mmol/L Carbon Dioxide 28 (22-30) mmol/L Anion Gap 8 (4-12) mmol/L BUN 12 (7-17) mg/dL Creatinine 0.60 L (0.7-1.0) mg/dL Estim Creat Clear Calc 90 ml/min Estimated GFR > 60 (59 - ) Glucose 98 (65-110) mg/dL Calcium 9.8 (8.4-10.2) mg/dL Total Bilirubin 0.5 (0.2-1.3) mg/dL AST 41 H (14-36) U/L ALT 16 (6-35) U/L Alkaline Phosphatase 54 (38-126) U/L Total Protein 8.2 (6.3-8.2) g/dL Albumin 4.6 (3.5-5.1) g/dL Lipase 99 (23-300) U/L POC Urine HCG, Qual Negative (Negative) Imaging Data Attestation: I personally reviewed and interpreted this imaging study as follows: Radiologist's impression: ITS Impressions Abdomen/Pelvis CT 08/07/25 18:07 IMPRESSION: No acute intra-abdominal process. Incidental findings above Transvaginal US 08/07/25 19:33 Impression: Probable dominant follicle left ovary correlating with the previous CT findings. Please see above ECG Data EKG #1: Attestation: I personally reviewed and interpreted this ECG as follows: ECG completion date: 08/07/25 ECG completion time: 16:06 Interpretation: Normal sinus rhythm rate of 64, normal axis, normal intervals, T-wave inversions and V1 through V3 Discharge Plan Discharge Clinical Impression: Abdominal pain Patient Disposition: Home Condition: Stable Instructions: Antibiotic Form, Abdominal Pain (ED) Additional Instructions: CT and ultrasound showed no evidence of intra-abdominal pathology including ovarian torsions, appendicitis, diverticulitis. He may have pain related to your IBS or potentially the periphery. He should follow-up with her tour director in the next week for re-evaluation. You are also given referral to GI, Dr. Smith, call his office next week to schedule appointment. Your given prescriptions for dicyclomine, Lidoderm, hydrocodone, take these as prescribed. Of you may take Tylenol and ibuprofen for the pain as well. Return to the ED for any new or worsening symptoms. Patient Language: Nicaraguan Prescriptions: New dicyclomine 10 mg capsule 10 mg PO TID Qty: 30 0RF lidocaine [Lidoderm] 5 % adhesive patch,medicated 1 patch topical DAILY Qty: 15 0RF Rx Instructions: leave on most painful area for up to 12 hrs No Action alprazolam [Xanax] 0.25 mg tablet 0.25 mg PO TID PRN (Reason: anxiety) Qty: 90 0RF metoprolol succinate 25 mg tablet extended release 24 hr 12.5 mg PO DAILY PRN (Reason: palpitations) Qty: 30 2RF meloxicam 15 mg tablet 15 mg PO DAILY Qty: 30 1RF acetaminophen-codeine 300-30 mg tablet 1 tablet PO Q12H PRN (Reason: pain) Qty: 60 0RF levothyroxine [Synthroid] 200 mcg tablet 200 mcg PO DAILY Qty: 90 3RF levothyroxine [Synthroid] 25 mcg tablet 25 mcg PO DAILY Qty: 90 3RF Follow-up/Referrals: Michelle Moreira MD [Primary Care Provider, Family Practice] Chano Smith MD [Physician, Gastroenterology]
[2025-08-07 16:16] LABS: Hematocrit 40.4 % (37.0-47.0); Hemoglobin 13.2 g/dL (12.0-15.0); Immature Granulocyte Percent A 0.2 % (0-0.5); Lymphocytes Absolute Auto 1.55 K/mm3 (0.9-3.2); Mean Corpuscular HGB Conc 32.7 g/dl (32-36); Mean Corpuscular Hemoglobin 29.9 pg (26-34); Mean Corpuscular Volume 91.6 fl (80-100); Nucleated Red Blood Cells Absolute Auto 0.000 K/mm3 (0.0-0.012); Nucleated Red Blood Cells Perc 0.0 % (0.0-0.2); Platelet Count Result 245 k/mm3 (150-375); Red Blood Count 4.41 M/mm3 (4.2-5.4); White Blood Count 6.4 K/mm3 (4.5-10.0)
--- OUTSIDE RECORDS SUMMARY | 2025-08-07 16:26 | XMS_ITS | Clinical Summary ---
Author Organization [facility] Address [address] [place] [address] Care Team Providers Care Level Designer Name Role Phone Michelle Moreira MD Primary Care Provider [phone] Allergies Active Allergy Reactions Criticality Noted Date Comments Sertraline Medications magnesium oxide 400 mg capsule daily 02/06/2018 Acti ve metoprolol tartrate (LOPRESSOR) 25 mg immediate release tablet Take 0.5 tablets (12.5 mg total) by mouth daily as needed (for palpitations /PVCs.) 15 tablet 3 01/26/2021 Active levothyroxine (SYNTHROID) 200 mcg tablet Take 1 tablet (200 mcg total) by mouth daily 30 tablet 11 09/12/2021 Active ALPRAZolam (XANAX) 0.25 mg tablet Take 0.25 mg by mouth nightly as needed Active Lactobac no.41/Bifidobac t no.7 (PROBIOTIC-10 ORAL) Take by mouth Active acetaminophen-c odeine (TYLENOL with CODEINE #3) 300-30 mg per tablet Take 1 tablet by mouth every 4 (four) hours as needed for pain 07/03/2022 Active amoxicillin 500 mg tablet TAKE 1 TABLET BY MOUTH THREE TIMES DAILY UNTIL ALL TAKEN 08/27/2022 Active nitrofurantoin (MACRODANTIN) 100 mg capsule TAKE 1 CAPSULE BY MOUTH EVERY 12 HOURS FOR 7 DAYS 10/30/2022 Active Synthroid 25 mcg tablet 10/31/2022 Active Active Problems Problem Noted Date Diagnosed Date Contusion of right foot 10/01/2022 Family history of long QT syndrome 03/19/2022 Bradycardia 03/19/2022 Medication side effects 03/19/2022 Migraine without aura and wi thout status migrainosus, not intractable 2019 Ventricular premature beats 08/08/2017 Tired 08/08/2017 Obesity 08/08/2017 Increased body mass index (BMI) 05/26/2017 Paroxysmal tachycardia 05/26/2017 Right sided abdominal pain 11/19/2016 Insomnia 04/24/2016 Anxiety 04/24/2016 Obesity with body mass index 30 or greater 06/07 Hyperlipidemia 01/23/2015 Panic attack 11/28/2014 Tachycardia, unspecified 05/11/2014 Thyroid activity decreased 01/03/2014 Palpitations 12/03/2011 Pre-syncope 11/26/2011 Chest pain 11/26/2011 Surgical History Surgery Date Site/Laterality Comments [place] CHOLECYSTECTOMY Cholecystectomy - 1999 (Added by TW Conv) [place] DELIVERY ONLY Section - 1999 (Added by TW Conv) LAPAROSCOPY Exploratory Laparoscopy - ENDOMETROISIS AND OVARIAN CYSTS SEVERAL SURGERIES, LATEST ONE IN 2012 (Added by TW Conv) CYST REMOVAL Medical History Medical History Date Comments Long QT syndrome Long QT interva l syndrome - MEDICATION INDUCED (Added by TW Conv) Personal history of other di seases of the circulatory system History of mitral valve prol apse - (Added by TW Conv) Personal history of other en docrine, nutritional and metabolic disease History of thyroid d isease - (Added by TW Conv) History of peptic ulcer disease History of peptic ulcer - (Added by TW Conv) Puerperal psychosis (HCC) Postpa rtum depression - (Added by TW Conv) Anxiety Headache Endometriosis Thyroid disease Melanoma (HCC) left wrist MVP (mitral valve prolapse) Ovarian cyst Family History Medical History Relation Name Comments Long QT syndrome Brother 1 Family hist ory of long QT syndrome - (Added by TW Conv) Sudden Cardiac Brother 2 Family history of sudden cardiac - (Added by TW Conv) No Known Problems Father Diabetes Maternal Grandfather Family history of diabetes mellitus - (Added by TW Conv) Heart disease Maternal Grandfather Family history of cardiac disorder - (Added by TW Conv)/Family history of cardiac disorder - (Added by TW Conv) Stroke Maternal Grandfather Family history of cerebrovascular accident - (Added by TW Conv) Diabetes Mother Family history of diabetes mellitus - (Added by TW Conv)/Family history of diabetes mellitus (DM) - (Added by TW Conv) Long QT syndrome Mother Family hist ory of long QT syndrome - (Added by TW Conv) Relation Name Status Comments Brother 1 Brother 2 Father Alive Maternal Grandfather Mother Alive Social History Tobacco Use Types Packs/Day Years Used Date Smoking Tobacco: Never Smokeless Tobacco: Never Alcohol Use Standard Drinks/Week Comments Not Currently 0 (1 standard drink = 0.6 oz pur e alcohol) Comments Unknown Sex and Gender Information Value Date Recorded Sex Assigned at Not on file Legal Sex Female 12:20 AM WELL DRILL OPERATOR CABLE TOOL Gender Identity Not on file Sexual Orientation Straight 02/28/2020 2: 40 PM CDT Occupation Industry Job Start Date Job End Date RN Not on file Not on file Not on file Obstetrics History Last Filed Vital Signs Vital Sign Reading Time Taken Comments Blood Pressure 108/62 03/19/2022 9:16 AM CDT Pulse 71 03/19/2022 9:16 AM CDT Temperature 36.6 C (97.8 F) 01/26/2021 11:47 AM CDT Respiratory Rate - - Oxygen Saturation 99% 03/19/2022 9:16 AM CDT Inhaled Oxygen Concentration - - Weight 67.1 kg (148 lb) 09/16/2022 10:28 AM WELL DRILL OPERATOR CABLE TOOL Height 165.1 cm (5' 5) 09/16/2022 10:28 AM WELL DRILL OPERATOR CABLE TOOL Body Mass Index 24.63 09/16/2022 10:28 AM WELL DRILL OPERATOR CABLE TOOL Plan of Treatment Health Maintenance Due Date Last Done Comments Breast Cancer Screening-Mammogram 1979 Cervical Cancer Screening 1979 Colon Cancer Screening-Colonoscopy 1979 Depression Screening 1979 Hepatitis C Screening 1979 DTaP/Tdap/Td Vaccine (1 - Tdap) 1990 Hepatitis B Screening 1997 Regular Well Visit/Exam 18-64 1997 Covid-19 Vaccine (2 - 2024-2 6 season) 2025 09/20/2021 Influenza Vaccine (#1) 2025 HPV Vaccines Aged Out No longer eligi ble based on patient's age to complete this topic Pneumococcal vaccine <65 Aged Out No longer eligible based on patient's age to complete this topic Insurance [employer] OPEN [facility] [employer] [facility] O [facility] H[facility] Care Teams Level Designer Relationship Specialty Start Date End Date Michelle Moreira MD PCP - General 01/28/07
--- OUTSIDE RECORDS SUMMARY | 2025-08-07 16:26 | XMS_ITS | Patient Health Record ---
Author Organization [facility] Address [address] [facility] [address] [place], [place] [address] Care Team Providers Care Panel Flow Machine Operator Name Role Phone Mindy Verde Unavailable [phone] LESLIE ACOSTA, JOSÉ Unavailable Unavailable REASON FOR REFERRAL No Information PLAN OF TREATMENT No Information Insurance Providers Payer Name Payer Address Payer Phone Subscriber Number Group Number Insured Name Patient Relationship to Insured Coverage Start Date Coverage End Date [facility] - O [address] [place] [address] [id number] Ryley Cano Spouse - patient is the spouse of the insured 2005
--- OUTSIDE RECORDS SUMMARY | 2025-08-07 16:26 | XMS_ITS | Encounter Summary ---
Author Organization [facility] Address [address] [place] [address] Phone Care Team Providers Care General Laborer Name Role Phone Michelle Moreira MD Primary Care Provider [phone] Encounter Details Date Type Department Care Team (Late st Contact Info) Description 09/14/2018 Telephone [facility] Cardiology [address] [facility] [address] [facility] 8th [place] [address] [place] [address] Alvino Haynes MD [address] [facility] [address] [place] [address] Social History Tobacco Use Types Packs/Day Years Used Date Smoking Tobacco: Never Smokeless Tobacco: Never Comments Unknown Sex and Gender Information Value Date Recorded Sex Assigned at Not on file Legal Sex Female 12:20 AM MARBLE AND GRANITE POLISHER Gender Identity Not on file Sexual Orientation Straight 02/28/2020 2: 40 PM CDT documented as of this encounter Plan of Treatment Not on file documented as of this encounter Visit Diagnoses Not on filedocumented in this encounter Care Teams General Laborer Relationship Specialty Start Date End Date Michelle Moreira MD PCP - General 01/28/07 documented as of this encounter
[2025-08-07 16:28] LABS: Alanine Aminotransferase 16 U/L (6-35); Albumin Level 4.6 g/dL (3.5-5.1); Alkaline Phosphatase 54 U/L (38-126); Anion Gap 8 mmol/L (4-12); Aspartate Amino Transferase 41 U/L (14-36); Bilirubin,Total 0.5 mg/dL (0.2-1.3); Blood Urea Nitrogen 12 mg/dL (7-17); Calcium 9.8 mg/dL (8.4-10.2); Carbon Dioxide 28 mmol/L (22-30); Chloride 101 mmol/L (98-107); Estimated CRCL calculation 90 ml/min; Estimated Glomerular Filt Rate > 60; Glucose 98 mg/dL (65-110); Lipase 99 U/L (23-300); Potassium 4.1 mmol/L (3.4-5.0); Sodium 137 mmol/L (137-145); Total Protein 8.2 g/dL (6.3-8.2)
[2025-08-07] MEDS: SODIUM CHLORIDE 0.9% IV 1,000 ML 999 ML IV CONT (17:11)
[2025-08-07] MEDS: KETOROLAC 30 MG/ML VIAL (*BKC) IV PUSH (17:12)
[2025-08-07 17:21] VITALS: BP 108/63; PULSE 66; RESP 18; O2SAT 100
[2025-08-07 17:21] LABS: BEDSIDEPREGUCG Negative (Negative)
[2025-08-07] MEDS: DICYCLOMINE HCL 10 MG CAPSULE 20 MG PO (20:03)
[2025-08-07 20:11] VITALS: BP 120/83; PULSE 64; RESP 14; O2SAT 100
== END 2025-08-07 20:12 | disposition home or self-care (01) ==
PROVIDERS: Emergency Provider Student in an Organized Health Care Education/Training Program; PCP Family Medicine
DX: R10.31 Right lower quadrant pain (principal); I34.1 Nonrheumatic mitral (valve) prolapse; E03.9 Hypothyroidism, unspecified; D50.9 Iron deficiency anemia, unspecified; K58.9 Irritable bowel syndrome, unspecified; N80.9 Endometriosis, unspecified; Q87.89 Other specified congenital malformation syndromes, not elsewhere classified; I45.81 Long QT syndrome; F41.9 Anxiety disorder, unspecified; F33.9 Major depressive disorder, recurrent, unspecified; Z85.820 Personal history of malignant melanoma of skin; Z90.49 Acquired absence of other specified parts of digestive tract; Z90.721 Acquired absence of ovaries, unilateral; N83.02 Follicular cyst of left ovary; R94.31 Abnormal electrocardiogram [ECG] [EKG]
CPT/HCPCS: 36415; 74177; 76830; 80053; 81025; 83690; 85025; 93005; 96361; 96374; 99284; A9270; J1885; J7030; Q9967

== ENCOUNTER 2025-10-17 09:29 | Emergency (ER) | payer OTHER, SELFPAY ==
--- NOTE | ~2025-10-17 | XR_ITS ---
EXAMINATION: XR chest 2V 10/17/2025 11:10 INDICATION: Chest pressure PROCEDURE: 2 view chest COMPARISON: Comparison to multiple prior studies sequentially, with oldest reviewed study dated 10/10/2020. FINDINGS: The lungs are clear. The cardiomediastinal silhouette is within normal limits. There are no pleural effusions. There is no pneumothorax suspected. IMPRESSION: 1: NO ACUTE CARDIOPULMONARY DISEASE. Reviewed, dictated and finalized at location O. R TRANSPORTATION WORKER
[2025-10-17 09:31] VITALS: BP 132/68; PULSE 71; RESP 20; TEMP 36.4; O2SAT 100
--- NOTE | 2025-10-17 09:31 | ECG_ITS ---
Test Date: 2025-10-17 09:37:50 Measurements Intervals [place] Rate: 66 P: 69 OH: 180 QRS: 80 QRSD: 88 T: 41 QT: 399 QTc: 421 Interpretive Statements SINUS RHYTHM BORDERLINE T WAVE ABNORMALITY- ANTERIOR LEADS BASELINE ARTIFACT- II, III, AVF BORDERLINE ECG Compared to ECG 08/07/2025 16:06:24 POSSIBLE ISCHEMIA NO LONGER PRESENT Electronically Signed On 10-17-2025 22:12:44 COURTROOM DEPUTY OR CALENDAR CLERK by Angel Cortés D.O.
--- OUTSIDE RECORDS SUMMARY | 2025-10-17 09:47 | XMS_ITS | Encounter Summary ---
Author Organization [facility] Address [address] [place] [address] Phone Care Team Providers Care Club Concierge Name Role Phone Michelle Moreira MD Primary Care Provider [phone] Encounter Details Date Type Department Care Team (Late st Contact Info) Description 09/14/2018 Telephone [facility] Cardiology [address] [facility] [address]th [place] [address] [place] [address] Alvino Haynes MD [address] [facility] [address] [place] [address] Social History Tobacco Use Types Packs/Day Years Used Date Smoking Tobacco: Never Smokeless Tobacco: Never Comments Unknown Sex and Gender Information Value Date Recorded Sex Assigned at Not on file Legal Sex Female 12:20 AM TYPESETTER PERFORATOR OPERATOR Gender Identity Not on file Sexual Orientation Straight 02/28/2020 2: 40 PM CDT documented as of this encounter Plan of Treatment Not on file documented as of this encounter Visit Diagnoses Not on filedocumented in this encounter Care Teams Club Concierge Relationship Specialty Start Date End Date Michelle Moreira MD PCP - General 01/28/07 documented as of this encounter
--- OUTSIDE RECORDS SUMMARY | 2025-10-17 09:47 | XMS_ITS | Clinical Summary ---
Author Organization [facility] Address [address] [place] [address] Care Team Providers Care Bullet Swaging Machine Adjuster Name Role Phone Michelle Moreira MD Primary Care Provider [phone] Allergies Active Allergy Reactions Criticality Noted Date [...] 11/26/2011 Surgical History Surgery Date Site/Laterality Comments [place] CHOLECYSTECTOMY Cholecystectomy - 1999 (Added by TW Conv) [place] DELIVERY ONLY Section - 1999 (Added by [...] on file Legal Sex Female 12:20 AM VETERINARY TECHNICIAN Gender Identity Not on file Sexual Orientation Straight 02/28/2020 2: 40 PM CDT Occupation Industry Job Start Date Job End Date RN Not on file Not on file Not on file Last Filed Vital Signs Vital Sign Reading Time Taken Comments Blood Pressure 108/62 03/19/2022 9:16 AM CDT Pulse 71 03/19/2022 9:16 AM CDT Temperature 36.6 C (97.8 F) 01/26/2021 11:47 AM CDT Respiratory Rate - - Oxygen Saturation 99% 03/19/2022 9:16 AM CDT Inhaled Oxygen Concentration - - Weight 67.1 kg (148 lb) 09/16/2022 10:28 AM VETERINARY TECHNICIAN Height 165.1 cm (5' 5) 09/16/2022 10:28 AM VETERINARY TECHNICIAN Body Mass Index 24.63 09/16/2022 10:28 AM VETERINARY TECHNICIAN Plan of Treatment Health Maintenance Due Date [...] patient's age to complete this topic Insurance [employer] OPEN ACCESS [facility] HEALTHCARE O [facility] HE[facility] O [facility] HMO Care Teams Bullet Swaging Machine Adjuster Relationship Specialty Start Date End Date Michelle Moreira MD PCP - General 01/28/07
--- OUTSIDE RECORDS SUMMARY | 2025-10-17 09:47 | XMS_ITS | Patient Health Record ---
Author Organization [facility] Address [address] [facility] [address] [place], [place] [address] Phone [phone] Care Team Providers Care Surveyor Helper Rod Name Role Phone Mindy Verde M.D. Unavailable JOSÉ NELSON MD Unavailable Unavailable Reason For Referral No Information Social History Sex Observation Social History Observation Description Sex Observation Female Plan Of Treatment No Information Insurance Providers Payer Name Payer Address Payer Phone Subscriber Number Group Number Insured Name Patient Relationship to Insured Coverage Start Date Coverage End Date [facility] - O [address] [place] [address] [id number] Ryley Cano Spouse - patient is the spouse of the insured 2005
--- OUTSIDE RECORDS SUMMARY | 2025-10-17 09:47 | XMS_ITS | Encounter Summary ---
Author Organization [facility] Address [address] [place] [address] Phone Care Team Providers Care Photographic Equipment Technician Name Role Phone Michelle Moreira MD Primary Care Provider [phone] Encounter Details Date Type Department Care Team (Latest Contact Info) Description 03/03/2019 Orders Only [facility] CARDIOLOGY Scanning, Provider Social History Tobacco Use Types Packs/Day Years Used Date Smoking Tobacco: Never Smokeless Tobacco: Never Comments Unknown Sex and Gender Information Value Date Recorded Sex Assigned at Not on file Legal Sex Female 12:20 AM SHRINKER Gender Identity Not on file Sexual Orientation Straight 02/28/2020 2: 40 PM CDT documented as of this encounter Plan of Treatment Not on file documented as of this encounter Procedures Procedure Name Priority Date/Time Associated Diagnosis Comments CARDIOLOGY DOCUMENT SCAN 03/03/2019 documented in this encounter Results * SCAN - CARDIOLOGY (03/03/2019) Anatomical Region Laterality Modality Other us Provider Scanning [facility] CARDIAC SERVICES PROCEDURES Final Result documented in this encounter Visit Diagnoses Not on filedocumented in this encounter Care Teams Photographic Equipment Technician Relationship Specialty Start Date End Date Michelle Moreira MD PCP - General 01/28/07 documented as of this encounter
[2025-10-17 09:56] LABS: Hematocrit 36.2 % (37.0-47.0); Hemoglobin 11.9 g/dL (12.0-15.0); Immature Granulocyte Percent A 0.4 % (0-0.5); Lymphocytes Absolute Auto 1.44 K/mm3 (0.9-3.2); Mean Corpuscular HGB Conc 32.9 g/dl (32-36); Mean Corpuscular Hemoglobin 30.3 pg (26-34); Mean Corpuscular Volume 92.1 fl (80-100); Nucleated Red Blood Cells Absolute Auto 0.000 K/mm3 (0.0-0.012); Nucleated Red Blood Cells Perc 0.0 % (0.0-0.2); Platelet Count Result 214 k/mm3 (150-375); Red Blood Count 3.93 M/mm3 (4.2-5.4); White Blood Count 4.7 K/mm3 (4.5-10.0)
[2025-10-17 10:07] LABS: INR 1.0; Prothrombin Time 13.4 Seconds (11.1-14.7)
[2025-10-17 10:08] LABS: Alanine Aminotransferase 15 U/L (6-35); Albumin Level 4.5 g/dL (3.5-5.1); Alkaline Phosphatase 64 U/L (38-126); Anion Gap 3 mmol/L (4-12); Aspartate Amino Transferase 40 U/L (14-36); Bilirubin,Total 0.6 mg/dL (0.2-1.3); Blood Urea Nitrogen 8 mg/dL (7-17); Calcium 9.8 mg/dL (8.4-10.2); Carbon Dioxide 30 mmol/L (22-30); Chloride 106 mmol/L (98-107); Estimated CRCL calculation 83 ml/min; Estimated Glomerular Filt Rate > 60; Glucose 100 mg/dL (65-110); Lipase 84 U/L (23-300); Partial Thromboplastin Time 29.1 Seconds (22.3-36.8); Potassium 4.1 mmol/L (3.4-5.0); Sodium 139 mmol/L (137-145); Total Protein 8.0 g/dL (6.3-8.2)
[2025-10-17 10:19] LABS: Troponin I < 0.012 ng/mL (0.000-0.034)
[2025-10-17 10:55] VITALS: BP 118/80; PULSE 64; RESP 16; O2SAT 100
[2025-10-17 11:01] VITALS: BP 110/74; PULSE 62; RESP 18; O2SAT 100
--- NOTE | 2025-10-17 11:24 | ED_ITS ---
HPI - General Adult General Chief complaint: Chest Pain Stated complaint: chest pain Time Seen by Provider: 10/17/25 10:48 History of Present Illness HPI narrative: 45-year-old female presenting to the emergency department for evaluation for left-sided chest pressure. Patient did have some symptoms on Friday where she felt left-sided chest pressure and had some generalized fatigue associated with this. 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 Patient takes his medication p.r.n.. Patient did take her metoprolol Friday and felt this improved. Last night patient had onset are for chest pressure again. She states that is a chest pressure and a sharp pain. Patient states his left chest does radiate to left arm. Patient denies any prior history of PE DVT or coronary disease. Patient did have a recent stress test that was negative. Patient states he does have associated weakness with this but denies any specific shortness of breath. Patient denies any calf tenderness. Patient denies any other significant past medical history. Patient reports the pain is improved when she leans forward and worsened when she leans back. Related Data Allergies Allergy/AdvReac Type Severity Reaction Status Date / Time metoclopramide Allergy Severe DYSRHYTHMIA Verified 09/08/25 09:36 S ondansetron Allergy Severe DYSRHYTHMIA Verified 09/08/25 09:36 S sertraline (From Zoloft) Allergy Mild Other Verified 09/08/25 09:36 PROLONGED QT DRUGS Allergy Severe DYSRHYTHMIA Uncoded 09/08/25 09:36 S Review of Systems 2 Review of Systems: All systems reviewed & are unremarkable except as noted in HPI and below PMFSH Past Medical History Medical History Melanoma left wrist Anxiety Ovarian cyst Uterine fibroid Endometriosis Mitral valve prolapse Hypothyroidism Iron deficiency anemia Moderate episode of recurrent major depressive disorder Surgical History Surgical History History of surgical removal of skin lesion History of right oophorectomy Hx of section H/O removal of cyst H/O laparoscopy Hx of cholecystectomy Lumbar puncture headache Family History Family History Other Congenital long QT syndrome Diabetes mellitus Family history of coronary artery disease Hypertension Lupus Social History Social History Smoking status: Never smoker Second hand tobacco smoke exposure: No Alcohol intake: never Substance use: never Substance use type: does not use Lack of Transportation: No Lack of Food: Sometimes True Current Housing: I Have Housing Concerned About Future Housing: No Difficulty Paying Gas/Electric Bills: No Difficulty Paying for Meds: No Currently Unemployed: No Education: Bachelor's Degree Difficulty w/ Childcare or Family Care: No Living arrangements: with family Gender identity (if verbalized by the patient): Female Sexual Orientation (if Verbalized by the Patient): Straight or Heterosexual Spiritual care concerns: No Agree to blood products: Yes Exam 2 Narrative: APPEARANCE: Well appearing, no pain, no distress, well-nourished. HEAD: normocephalic, atraumatic. EYES: PERRLA/EOMI, conjunctivae clear. NOSE: Normal no drainage EARS:TMS clear with good light reflex. THROAT: Pharynx clear, no exudate. NECK: Supple. No adenopathy, no masses. RESPIRATORY: Airway patent, respirations nonlabored. Clear to auscultation bilaterally, no rales, rhonchi, wheezing. CARDIOVASCULAR: Regular rate and rhythm without murmurs rubs or gallops. ABDOMINAL: Soft, nontender, nondistended, normal bowel sounds MUSCULOSKELETAL: No reproducible left-sided chest wall tenderness to palpation NEURO: Alert. Cranial nerves II through XII intact. Good gait. Good coordination SKIN: Warm, dry. Normal Color Course Vital Signs Vital signs: Vital Signs Temperature 97.5 F L 10/17/25 09:31 Pulse Rate 71 10/17/25 09:31 Respiratory Rate 20 10/17/25 09:31 Blood Pressure 132/68 10/17/25 09:31 Pulse Oximetry 100 10/17/25 09:31 Oxygen Delivery Room Air 10/17/25 09:31 Temperature 97.5 F L 10/17/25 12:50 Pulse Rate 58 L 10/17/25 13:15 Respiratory Rate 16 10/17/25 13:15 Blood Pressure 119/73 10/17/25 13:15 Pulse Oximetry 100 10/17/25 13:15 Oxygen Delivery Room Air 10/17/25 10:55 MDM MDM Narrative Medical decision making narrative: 45-year-old female present urgency department for evaluation of left-sided chest pressure. Patient is currently afebrile with no leukocytosis hemoglobin 11.9. INR of 1.0. Patient's initial troponin was negative. No EKG changes to suggest pericarditis or STEMI. Patient's x-ray shows no acute cardiopulmonary abnormality. D-dimer was ordered and patient will be treated with IV Toradol to help with potential pleurisy versus early pericarditis. Patient had negative serial troponins. D-dimer is not elevated. Patient is afebrile with no leukocytosis. No acute abnormalities on her CMP. Lipase was not elevated. Chest x-ray shows no acute cardiopulmonary abnormality. Low concern for pulmonary embolism, pneumonia, pericarditis. Symptoms could be secondary to pleurisy, low concern for ACS. Patient was updated results of the workup. Patient was comfortable plan for discharge and close follow-up. All questions were addressed. Will be provided outpatient NSAIDs. Patient declined any other struck her medications for pain control. Patient was also educated on reasons to return to the emergency department. Differential Diagnosis Differential Diagnosis: COVID, RSV influenza, ACS, pneumonia, pneumothorax, pulmonary embolism Lab Data [facility] Lab Attestation statement: I personally reviewed the patient's lab results. 10/17/25 09:44 10/17/25 09:44 Labs: Lab Results 10/17/25 10/17/25 Range/Units 09:44 12:23 WBC 4.7 (4.5-10.0) K/mm3 RBC 3.93 L (4.2-5.4) M/mm3 Hgb 11.9 L (12.0-15.0) g/dL Hct 36.2 L (37.0-47.0) % MCV 92.1 (80-100) fl MCH 30.3 (26-34) pg MCHC 32.9 (32-36) g/dl RDW 12.8 (11.5-14.5) % Plt Count 214 (150-375) k/mm3 MPV 8.6 (7.4-10.4) fl Immature Gran % (Auto) 0.4 (0-0.5) % Neut % (Auto) 55.2 (45.5-73.1) % Lymph % (Auto) 30.6 (18.3-44.2) % [place] % (Auto) 8.7 H (2.6-8.5) % Eos % (Auto) 4.0 (0-4.4) % Baso % (Auto) 1.1 (0.2-1.2) % Lymph # (Auto) 1.44 (0.9-3.2) K/mm3 [place] # (Auto) 0.4 (0.1-0.6) K/mm3 Eos # (Auto) 0.2 (0-0.3) K/mm3 Baso # (Auto) 0.1 (0.0-0.1) K/mm3 Abs Immat Gran (auto) 0.02 (0.00-0.031) K/mm3 Absolute Neuts (auto) 2.6 (1.3-6.7) K/mm3 Absolute Nucleated RBC 0.000 (0.0-0.012) K/mm3 Nucleated RBC % 0.0 (0.0-0.2) % PT 13.4 (11.1-14.7) Seconds INR 1.0 APTT 29.1 (22.3-36.8) Seconds D-Dimer 0.29 (<0.48) ug/mL Sodium 139 (137-145) mmol/L Potassium 4.1 (3.4-5.0) mmol/L Chloride 106 (98-107) mmol/L Carbon Dioxide 30 (22-30) mmol/L Anion Gap 3 L (4-12) mmol/L BUN 8 (7-17) mg/dL Creatinine 0.65 L (0.7-1.0) mg/dL Estim Creat Clear Calc 83 ml/min Estimated GFR > 60 (59 - ) Glucose 100 (65-110) mg/dL Calcium 9.8 (8.4-10.2) mg/dL Total Bilirubin 0.6 (0.2-1.3) mg/dL AST 40 H (14-36) U/L ALT 15 (6-35) U/L Alkaline Phosphatase 64 (38-126) U/L Troponin I < 0.012 < 0.012 (0.000-0.034) ng/mL Total Protein 8.0 (6.3-8.2) g/dL Albumin 4.5 (3.5-5.1) g/dL Lipase 84 (23-300) U/L Imaging Data Attestation: I personally reviewed and interpreted this imaging study as follows: My impression: Chest x-ray: No acute cardiopulmonary abnormality Radiologist's impression: ITS Impressions Chest X-Ray 10/17/25 11:12 IMPRESSION: 1: NO ACUTE CARDIOPULMONARY DISEASE. Discharge Plan Discharge Clinical Impression: Chest pain, Pleurisy Patient Disposition: Home Condition: Stable Instructions: Antibiotic Form, Chest Pain (ED), Pleurisy (ED) Additional Instructions: Scheduled naproxen as directed for the next 5 days. Tylenol as needed for additional pain control. Have close follow-up with your primary care physician for additional outpatient cardiac testing. If you have any worsening symptoms then please call or return to the emergency department. Patient Language: Salvadorean Prescriptions: New naproxen [Naprosyn] 500 mg tablet 500 mg PO BID 7 Days Qty: 14 0RF No Action alprazolam [Xanax] 0.25 mg tablet 0.25 mg PO TID PRN (Reason: anxiety) Qty: 90 0RF metoprolol succinate 25 mg tablet extended release 24 hr 12.5 mg PO DAILY PRN (Reason: palpitations) Qty: 30 2RF meloxicam 15 mg tablet 15 mg PO DAILY Qty: 30 1RF acetaminophen-codeine 300-30 mg tablet 1 tablet PO Q4-6H PRN (Reason: pain) Qty: 20 0RF levothyroxine [Synthroid] 200 mcg tablet 200 mcg PO DAILY Qty: 90 3RF Follow-up/Referrals: Beatris Bush PA-C [Primary Care Provider, Family Practice] Quality HEART score for chest pain patients History: slightly suspicious ECG: normal Age: > 45 and < 65 years Risk factors: 1 or 2 risk factors Troponin: < or = to 1x normal limit Heart score: 2
--- OUTSIDE RECORDS SUMMARY | 2025-10-17 11:24 | XMS_ITS | Encounter Summary ---
Author Organization [facility] Address [address] [place] [address] Phone Care Team Providers Care Oracle Database Administrator Name Role Phone Michelle Moreira MD Primary Care Provider [phone] Encounter Details Date Type Department Care Team (Late st Contact Info) Description 09/14/2018 Telephone [facility] Cardiology [address] [facility] 8th [place] [address] [place] [address] Alvino Haynes MD [address] [facility] [address] [place] [address] Social History Tobacco Use Types Packs/Day Years Used Date Smoking Tobacco: Never Smokeless Tobacco: Never Comments Unknown Sex and Gender Information Value Date Recorded Sex Assigned at Not on file Legal Sex Female 12:20 AM PUMP REBUILDER Gender Identity Not on file Sexual Orientation Straight 02/28/2020 2: 40 PM CDT documented as of this encounter Plan of Treatment Not on file documented as of this encounter Visit Diagnoses Not on filedocumented in this encounter Care Teams Oracle Database Administrator Relationship Specialty Start Date End Date Michelle Moreira MD PCP - General 01/28/07 documented as of this encounter
--- OUTSIDE RECORDS SUMMARY | 2025-10-17 11:24 | XMS_ITS | Encounter Summary ---
Author Organization [facility] Address [address] [place] [address] Phone Care Team Providers Care Candle Molder Machine Name Role Phone Michelle Moreira MD Primary Care Provider [phone] Encounter Details Date Type Department Care Team (Latest Contact Info) Description 03/03/2019 Orders Only [facility] C[facility]IOLOG[facility] Scanning, Provider Social History Tobacco Use Types Packs/Day Years Used Date Smoking Tobacco: Never Smokeless Tobacco: Never Comments Unknown Sex and Gender Information Value Date Recorded Sex Assigned at Not on file Legal Sex Female 12:20 AM MEDICAL TECH Gender Identity Not on file Sexual Orientation [...] on filedocumented in this encounter Care Teams Candle Molder Machine Relationship Specialty Start Date End Date Michelle Moreira MD PCP - General 01/28/07 documented as of this encounter
--- OUTSIDE RECORDS SUMMARY | 2025-10-17 11:24 | XMS_ITS | Clinical Summary ---
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
[2025-10-17 12:00] VITALS: BP 110/74; PULSE 60; RESP 16; O2SAT 100
[2025-10-17] MEDS: KETOROLAC 30 MG/ML VIAL (*BKC) IV PUSH (12:19)
[2025-10-17] MEDS: ASPIRIN 81 MG CHEWABLE TABLET 324 MG PO (12:20)
--- NOTE | 2025-10-17 12:26 | ECG_ITS ---
Test Date: 2025-10-17 12:33:53 Measurements Intervals [place] Rate: 55 P: 68 MI: 179 QRS: 75 QRSD: 88 T: 46 QT: 426 QTc: 409 Interpretive Statements SINUS BRADYCARDIA BORDERLINE T WAVE ABNORMALITY- ANTERIOR LEADS BORDERLINE ECG Compared to ECG 10/17/2025 09:37:50 HEART RATE HAS DECREASED Electronically Signed On 10-17-2025 22:21:07 COSMETIC ACCOUNT COORDINATOR by Angel Cortés D.O.
[2025-10-17 12:50] VITALS: TEMP 36.4
[2025-10-17 12:53] LABS: Troponin I < 0.012 ng/mL (0.000-0.034)
[2025-10-17 13:15] VITALS: BP 119/73; PULSE 58; RESP 16; O2SAT 100
== END 2025-10-17 14:11 | disposition home or self-care (01) ==
PROVIDERS: Emergency Provider Emergency Medicine; PCP Student in an Organized Health Care Education/Training Program
DX: R09.1 Pleurisy (principal); I34.1 Nonrheumatic mitral (valve) prolapse; D50.9 Iron deficiency anemia, unspecified; E03.9 Hypothyroidism, unspecified; N80.9 Endometriosis, unspecified; F41.9 Anxiety disorder, unspecified; Z85.820 Personal history of malignant melanoma of skin; Z90.721 Acquired absence of ovaries, unilateral; Z90.49 Acquired absence of other specified parts of digestive tract; Z79.899 Other long term (current) drug therapy; R94.31 Abnormal electrocardiogram [ECG] [EKG]; R00.1 Bradycardia, unspecified
CPT/HCPCS: 36415; 71046; 80053; 83690; 84484; 85025; 85380; 85610; 85730; 93005; 96374; 99284; A9270; J1885